=== PATIENT | male | born 1945 | race Caucasian/White ===

== ENCOUNTER 2016-08-20 19:55 | Emergency (ER) | payer MEDICARE ==
[2016-08-20] MEDS ORDERED: ASPIRIN 81 MG TABLET, CHEWABLE PO ONE (20:50)
[2016-08-20 21:07] LABS: ANION GAP 14 (5-19); BLOOD UREA NITROGEN 18 mg/dL (7-20); CALCIUM 10.2 mg/dL (8.4-10.2); CARBON DIOXIDE 22 mmol/L (22-30); CHLORIDE 104 mmol/L (98-107); CREATINE KINASE 114 U/L (55-170); CREATININE RESULT 0.74 mg/dL (0.52-1.25); GLUCOSE 124 mg/dL (75-110); POTASSIUM 4.4 mmol/L (3.6-5.0); SODIUM 140.1 mmol/L (137-145)
[2016-08-20 21:26] LABS: CREATINE KINASE MB 1.43 ng/mL (<4.55)
[2016-08-20 21:27] LABS: TROPONIN I < 0.012 ng/mL
[2016-08-20] MEDS ORDERED: NITROGLYCERIN 0.4 MG/TAB 25 TAB/BOTTLE SL PRN (21:36)
--- NOTE | 2016-08-20 21:40 | ER Document Report ---
ED General - General Chief Complaint: Chest Pain Stated Complaint: CHEST PAIN Notes: Patient is a 71-year-old male with past medical history of hypertension, hyperlipidemia, active smoker, prior history of coronary artery disease status post heart catheterization with stenting several years ago who presents with acute onset of left-sided chest pain. Described as a crushing, severe pain that radiates into his jaw and left arm. States this does not feel same as when he had a prior SC but notes he was very concerned when the symptoms did not resolve. He did try aspirin at home without improvement of symptoms. Nothing worsens the symptoms. He did not see his primary care physician regarding today's concerns. Does note some associated mild shortness of breath as well as diaphoresis but no vomiting. TRAVEL OUTSIDE OF THE [place] IN LAST 30 DAYS: No - Related Data Allergies/Adverse Reactions: No Known Allergies Allergy (Verified 11/04/12 12:47) Past Medical History - General Information source: Patient - Social History Smoking Status: Current Every Day Smoker Frequency of alcohol use: None Drug Abuse: None Lives with: Spouse/Significant other Family History: Reviewed & Not Pertinent - Past Medical History Cardiac Medical History: Reports: Hx Heart Attack - 2005 Denies: Hx Hypertension Pulmonary Medical History: Denies: Hx Asthma Neurological Medical History: Denies: Hx Cerebrovascular Accident, Hx Seizures GI Medical History: Denies: Hx Hepatitis, Hx Hiatal Hernia, Hx Ulcer Infectious Medical History: Denies: Hx Hepatitis Past Surgical History: Reports: Hx Cardiac Surgery. Denies: Hx Open Heart Surgery, Hx Pacemaker - Immunizations Hx Diphtheria, Pertussis, Tetanus Vaccination: No - unknown Review of Systems - Review of Systems Notes: Constitutional: Negative for fever. HENT: Negative for sore throat. Eyes: Negative for visual changes. Cardiovascular: Positive for chest pain. Respiratory: Negative for shortness of breath. Gastrointestinal: Negative for abdominal pain, vomiting or diarrhea. Genitourinary: Negative for dysuria. Musculoskeletal: Negative for back pain. Skin: Negative for rash. Neurological: Negative for headaches, weakness or numbness. 10 point ROS negative except as marked above and in HPI. Physical Exam - Vital signs Vitals: Pulse Ox 95 08/20/16 20:36 Interpretation: Normal Notes: PHYSICAL EXAMINATION: GENERAL: Well-appearing, well-nourished and in no acute distress. HEAD: Atraumatic, normocephalic. EYES: Pupils equal round and reactive to light, extraocular movements intact, sclera anicteric, conjunctiva are normal. ENT: nares patent, oropharynx clear without exudates. Moist mucous membranes. NECK: Normal range of motion, supple without lymphadenopathy LUNGS: Breath sounds clear to auscultation bilaterally and equal. No wheezes rales or rhonchi. HEART: Regular rate and rhythm without murmurs ABDOMEN: Soft, nontender, normoactive bowel sounds. No guarding, no rebound. No masses appreciated. EXTREMITIES: Normal range of motion, no pitting or edema. No cyanosis. NEUROLOGICAL: No focal neurological deficits. Moves all extremities spontaneously and on command. PSYCH: Normal mood, normal affect. SKIN: Warm, Dry, normal turgor, no rashes or lesions noted. Course - Re-evaluation Re-evalutation: 08/20/16 21:38 Patient presents with chest pain concerning for possible ACS versus dissection. Initial EKG without ST changes. Initial troponin was also negative and patient has been having chest pain for over 12 hours at this time. I did take blood pressures of both arms at the bedside and there was a 20 mmHg difference between the left and the right. Based on this exam findings and patient's ongoing chest pain without obvious ischemic etiology, CT of the chest will be obtained to evaluate for an acute dissection patient was also initially tachycardic so the CTA will likewise help for acute pulmonary embolus. 08/21/16 03:15 CTA is read as negative. Patient continues to have intermittent chest pain. A repeat troponin was obtained and did come back mildly elevated at 0.167 above our AMI cut off. Patient's chest pain has been responsive to morphine. A repeat troponin is without any ST changes. I have discussed this case with , the hospitalist at [facility] who has accepted for transfer at this time. Patient has been updated on the care plan. Lovenox will be administered. - Vital Signs Vital signs: Temp Pulse Resp BP Pulse Ox 17 150/107 H 92 08/21/16 02:01 08/21/16 02:01 08/21/16 02:01 - Laboratory Result Diagrams: 08/20/16 20:30 08/20/16 20:30 Laboratory results interpreted by me: 08/20/16 08/20/16 20:30 20:30 WBC 13.0 H RDW 14.1 H Absolute Neutrophils 8.4 H Glucose 124 H - Diagnostic Test Radiology reviewed: Image reviewed, Reports reviewed Radiology results interpreted by me: 08/21/16 03:16 Chest x-ray: No pneumothorax or acute infiltrate - EKG Interpretation by Me Additional EKG results interpreted by me: 08/21/16 03:17 EKG 1: Sinus rhythm. Rate 88. No ST elevations or depressions. QTC 441 08/21/16 03:17 EKG 2: Normal sinus rhythm. Rate 85. No ST elevations or depressions Discharge - Discharge Clinical Impression: NSTEMI (non-ST elevated myocardial infarction) Condition: Fair Disposition: [facility]
[2016-08-20 21:53] LABS: ABSOLUTE BASOPHILS # (AUTO) 0.1 10^3/uL (0.0-0.2); ABSOLUTE EOSINOPHILS # (AUTO) 0.3 10^3/uL (0.0-0.6); ABSOLUTE LYMPHOCYTES (AUTO) 2.9 10^3/uL (0.5-4.7); ABSOLUTE MONOCYTES (AUTO) 1.3 10^3/uL (0.1-1.4); ABSOLUTE NEUT (AUTO) 8.4 10^3/uL (1.7-8.2); BASOPHILS % (AUTO) 0.7 % (0-2); EOSINOPHILS % (AUTO) 2.2 % (0-6); HEMATOCRIT 47.5 % (37.9-51.0); HGB HCT DIFFERENCE 0.5; LYMPHOCYTES % (AUTO) 22.2 % (13-45); MEAN CORPUSCULAR HEMOGLOBIN 29.2 pg (27.0-33.4); MEAN CORPUSCULAR HGB CONC 33.7 g/dL (32.0-36.0); MEAN CORPUSCULAR VOLUME 87 fl (80-97); MONOCYTES % (AUTO) 10.2 % (3-13); RED BLOOD COUNT 5.49 10^6/uL (4.35-5.55); RED CELL DISTRIBUTION WIDTH 14.1 % (11.5-14.0); SEGMENTED NEUTROPHILS % (AUTO) 64.7 % (42-78)
[2016-08-20] MEDS: MORPHINE SULFATE 10 MG/ML INJ IV PRN (21:57)
[2016-08-21] MEDS: MORPHINE SULFATE 10 MG/ML INJ IV PRN (00:24)
[2016-08-21] MEDS ORDERED: ENOXAPARIN SODIUM INJ 100 MG/1 ML DISP.SYRIN SUBCUT SCH (03:30)
--- NOTE | 2016-08-21 08:08 | EKG REPORT ---
SEVERITY:- NORMAL ECG - SINUS RHYTHM : Confirmed by: Loyd Villegas MD 21-Aug-2016 08:07:54
--- NOTE | 2016-08-21 08:08 | ER Document Report ---
Doctor's Note Notes: 08/21/16 08:07 Patient is complaining of increasing pain to his left anterior chest going into the shoulder, neck, and shooting down the arm. He states it might be made worse with movement deep breath and cough, but on examining him this does not appear to be case. Does have a congested cough. He does have morphine ordered for when necessary pain management so I will request the nurse administer that. She was also going to repeat his EKG at this time. He has a bed and an accepting physician at [facility], but transportation is still not available I am told. 08/21/16 09:27 A repeat EKG done remains normal. I was just informed that the when necessary morphine and so requested about an hour ago was refused by the patient. His vital signs remain stable. Transport is here to pick him up this time.
--- NOTE | 2016-08-21 08:09 | EKG REPORT ---
SEVERITY:- ABNORMAL ECG - SINUS RHYTHM PROBABLE ANTEROSEPTAL INFARCT, AGE INDETERM LATERAL LEADS ARE ALSO INVOLVED : Confirmed by: Loyd Villegas MD 21-Aug-2016 08:08:04
[2016-08-21 09:07] VITALS: BP 130/89
--- NOTE | 2016-08-21 13:50 | EKG REPORT ---
SEVERITY:- NORMAL ECG - SINUS RHYTHM : Confirmed by: Loyd Villegas MD 21-Aug-2016 13:50:03
== END 2016-08-21 09:27 | disposition short-term general hospital (02) ==
LOC: ER 19:55
DX: I21.4 Non-ST elevation (NSTEMI) myocardial infarction (principal); R07.9 Chest pain, unspecified; F17.200 Nicotine dependence, unspecified, uncomplicated; I10 Essential (primary) hypertension; E78.00 Pure hypercholesterolemia, unspecified
CPT/HCPCS: 93005 ×2; 99285; 96372; 96374; 36415; 82553; 82550; 85025; 80048; 84484; 71010; 71275; 93010 ×2; J2270 ×2; J1650

== ENCOUNTER 2018-05-30 10:59 | Emergency (ER) | payer MEDICARE ==
[2018-05-30] MEDS ORDERED: IPRATROPIUM/ALBUTEROL 0.5-2.5 MG/3 ML AMPUL NEB ONE (11:15)
[2018-05-30] MEDS ORDERED: PREDNISONE 20 MG TABLET PO ONE (11:15)
--- NOTE | 2018-05-30 11:17 | ER Document Report ---
ED Medical Screen (RME) - General Chief Complaint: Shortness Of Breath Stated Complaint: SHORTNESS OF BREATH Time Seen by Provider: 05/30/18 11:14 Notes: 73-year-old male to emergency department chief complaint of shortness of breath and wheezing. Patient states that he feels like he has fullness in his chest. Denies any chest pain. Is a smoker but states that he has not smoked in a couple of weeks due to the worsening shortness of breath. Dreaming about smoking a cigarette but not smoking at this time. History of COPD. History of stents. I have greeted and performed a rapid initial assessment of this patient. A comprehensive ED assessment and evaluation of the patient, analysis of test results and completion of the medical decision making process will be conducted by additional ED providers. TRAVEL OUTSIDE OF THE [place] IN LAST 30 DAYS: No - Related Data Allergies/Adverse Reactions: No Known Allergies Allergy (Verified 05/30/18 11:16) Past Medical History - Social History Chew tobacco use (# tins/day): No Frequency of alcohol use: None Drug Abuse: None - Past Medical History Cardiac Medical History: Reports: Hx Heart Attack - 2006, Hx Hypercholesterolemia Denies: Hx Hypertension Pulmonary Medical History: Reports: Hx Asthma, Hx COPD Neurological Medical History: Denies: Hx Cerebrovascular Accident, Hx Seizures Renal/ Medical History: Denies: Hx Peritoneal Dialysis GI Medical History: Denies: Hx Hepatitis, Hx Hiatal Hernia, Hx Ulcer Infectious Medical History: Denies: Hx Hepatitis Past Surgical History: Reports: Hx Cardiac Surgery, Hx Cholecystectomy, Hx Orthopedic Surgery - right leg metal plate. Denies: Hx Open Heart Surgery, Hx Pacemaker - Immunizations Hx Diphtheria, Pertussis, Tetanus Vaccination: No - unknown Review of Systems - Review of Systems Notes: Review of systems positive for the following: Shortness of breath, wheeze Physical Exam - Vital signs Vitals: Temp Pulse Resp BP Pulse Ox 97.8 F 82 28 H 144/77 H 91 L 05/30/18 11:05 05/30/18 11:05 05/30/18 11:05 05/30/18 11:05 05/30/18 11:05 Notes: Oxygen saturations 91% on room air. - Respiratory Respiratory status: No respiratory distress, Tachypnea Chest status: Nontender Breath sounds: Nonproductive cough, Wheezing Chest palpation: Normal - Cardiovascular Rhythm: Regular Heart sounds: Normal auscultation Course - Vital Signs Vital signs: Temp Pulse Resp BP Pulse Ox 97.8 F 82 28 H 144/77 H 91 L 05/30/18 11:05 05/30/18 11:05 05/30/18 11:05 05/30/18 11:05 05/30/18 11:05
[2018-05-30 11:50] LABS: ABSOLUTE BASOPHILS # (AUTO) 0.1 10^3/uL (0.0-0.2); ABSOLUTE EOSINOPHILS # (AUTO) 0.5 10^3/uL (0.0-0.6); ABSOLUTE LYMPHOCYTES (AUTO) 2.1 10^3/uL (0.5-4.7); ABSOLUTE MONOCYTES (AUTO) 0.8 10^3/uL (0.1-1.4); ABSOLUTE NEUT (AUTO) 7.4 10^3/uL (1.7-8.2); EOSINOPHILS % (AUTO) 4.2 % (0-6); HEMATOCRIT 47.4 % (37.9-51.0); LYMPHOCYTES % (AUTO) 19.4 % (13-45); MEAN CORPUSCULAR HEMOGLOBIN 29.4 pg (27.0-33.4); MEAN CORPUSCULAR HGB CONC 33.7 g/dL (32.0-36.0); MEAN CORPUSCULAR VOLUME 88 fl (80-97); MONOCYTES % (AUTO) 7.3 % (3-13); PLATELET COUNT 336 10^3/uL (150-450); RED BLOOD COUNT 5.42 10^6/uL (4.35-5.55); RED CELL DISTRIBUTION WIDTH 15.1 % (11.5-14.0); SEGMENTED NEUTROPHILS % (AUTO) 68.1 % (42-78); TOTAL CELLS COUNTED % (AUTO) 100 %; WHITE BLOOD COUNT 10.9 10^3/uL (4.0-10.5)
[2018-05-30 12:03] LABS: ALANINE AMINOTRANSFERASE 30 U/L (21-72); ALBUMIN 4.3 g/dL (3.5-5.0); ALKALINE PHOSPHATASE 102 U/L (38-126); ANION GAP 13 (5-19); ASPARTATE AMINO TRANSFERASE 25 U/L (17-59); BILIRUBIN,DIRECT 0.2 mg/dL (0.0-0.4); BILIRUBIN,TOTAL 0.6 mg/dL (0.2-1.3); BLOOD UREA NITROGEN 23 mg/dL (7-20); CALCIUM 9.5 mg/dL (8.4-10.2); CARBON DIOXIDE 26 mmol/L (22-30); CHLORIDE 104 mmol/L (98-107); CREATINE KINASE 158 U/L (55-170); GLUCOSE 109 mg/dL (75-110); POTASSIUM 5.1 mmol/L (3.6-5.0); SODIUM 142.6 mmol/L (137-145); TOTAL PROTEIN 7.5 g/dL (6.3-8.2)
[2018-05-30 12:14] LABS: CREATINE KINASE MB 2.84 ng/mL (<4.55); NT PRO BNP 23 pg/mL (5-900)
[2018-05-30 12:16] LABS: TROPONIN I < 0.012 ng/mL
[2018-05-30] MEDS ORDERED: ALBUTEROL SULFATE 0.083% NEB 2.5 MG/3 ML AMPUL NEB ONE (12:28)
[2018-05-30] MEDS ORDERED: MAGNESIUM SULFATE/D5W 1 GM/100 ML RTUPB IV ONE (12:28)
--- NOTE | 2018-05-30 12:29 | RADIOLOGY REPORT (SQ) ---
EXAM DESCRIPTION: CHEST 2 VIEWS COMPLETED DATE/TIME: 05/30/2018 12:07 pm REASON FOR STUDY: sob COMPARISON: 08/20/2016 EXAM PARAMETERS: NUMBER OF VIEWS: two views TECHNIQUE: Digital Frontal and Lateral radiographic views of the chest acquired. RADIATION DOSE: NA LIMITATIONS: none FINDINGS: LUNGS AND PLEURA: No opacities, masses or pneumothorax. No pleural effusion. MEDIASTINUM AND HILAR STRUCTURES: No masses or contour abnormalities. HEART AND VASCULAR STRUCTURES: Heart normal size. No evidence for failure. BONES: No acute findings. HARDWARE: None in the chest. OTHER: No other significant finding. IMPRESSION: No acute abnormality of the lungs. No focal airspace opacity. TECHNICAL DOCUMENTATION: JOB ID: [id number] [employer]- All Rights Reserved Reading location - IP/workstation name: [email or web address]
[2018-05-30] MEDS ORDERED: ALBUTEROL SULFATE HFA (90 MCG/PUFF) 8 GM MDI (1 MDI/ER DISP) IH ONE (14:32)
--- NOTE | 2018-05-30 14:33 | ER Document Report ---
ED General - General Chief Complaint: Shortness Of Breath Stated Complaint: SHORTNESS OF BREATH Time Seen by Provider: 05/30/18 11:14 TRAVEL OUTSIDE OF THE [place] IN LAST 30 DAYS: No - HPI Patient complains to provider of: Shortness of breath Notes: Patient coming in for increased shortness of breath and chest heaviness ongoing for the last 3 weeks intermittently. Patient states worse earlier this morning. Therefore patient came to the ER for further evaluation denies any recent travel denies any recent antibiotics. Patient states he does have a significant history of smoking for approximately 60 years. Patient states exacerbated with smoking last weeks because he has been feeling unwell. Denies any sputum production. Patient smells of nicotine upon my evaluation. Patient otherwise looks to be no obvious distress and was given a breathing treatment in triage states he does feel much better. - Related Data Allergies/Adverse Reactions: No Known Allergies Allergy (Verified 05/30/18 11:16) Past Medical History - Social History Smoking Status: Current Every Day Smoker Chew tobacco use (# tins/day): No Frequency of alcohol use: None Drug Abuse: None Family History: Reviewed & Not Pertinent Patient has suicidal ideation: No Patient has homicidal ideation: No - Past Medical History Cardiac Medical History: Reports: Hx Heart Attack - 2006, Hx Hypercholesterolemia Denies: Hx Hypertension Pulmonary Medical History: Reports: Hx Asthma, Hx COPD Neurological Medical History: Denies: Hx Cerebrovascular Accident, Hx Seizures Renal/ Medical History: Denies: Hx Peritoneal Dialysis GI Medical History: Denies: Hx Hepatitis, Hx Hiatal Hernia, Hx Ulcer Infectious Medical History: Denies: Hx Hepatitis Past Surgical History: Reports: Hx Cardiac Surgery, Hx Cholecystectomy, Hx Orthopedic Surgery - right leg metal plate. Denies: Hx Open Heart Surgery, Hx Pacemaker - Immunizations Hx Diphtheria, Pertussis, Tetanus Vaccination: No - unknown Review of Systems - Review of Systems Constitutional: No symptoms reported EENT: No symptoms reported Cardiovascular: Chest pain - Chest heaviness Respiratory: Short of breath Gastrointestinal: No symptoms reported Genitourinary: No symptoms reported Male Genitourinary: No symptoms reported Musculoskeletal: No symptoms reported Skin: No symptoms reported Hematologic/Lymphatic: No symptoms reported Neurological/Psychological: No symptoms reported -: Yes All other systems reviewed and negative Physical Exam - Vital signs Vitals: Temp Pulse Resp BP Pulse Ox 97.8 F 82 28 H 144/77 H 91 L 05/30/18 11:05 05/30/18 11:05 05/30/18 11:05 05/30/18 11:05 05/30/18 11:05 Interpretation: Normal - General General appearance: Appears well, Alert - HEENT Head: Normocephalic, Atraumatic Eyes: Normal Pupils: PERRL - Respiratory Respiratory status: No respiratory distress Chest status: Nontender Breath sounds: Wheezing Chest palpation: Normal - Cardiovascular Rhythm: Regular Heart sounds: Normal auscultation Murmur: No - Abdominal Inspection: Normal Distension: No distension Bowel sounds: Normal Tenderness: Nontender Organomegaly: No organomegaly - Back Back: Normal, Nontender - Extremities General upper extremity: Normal inspection, Nontender, Normal color, Normal ROM , Normal temperature General lower extremity: Normal inspection, Nontender, Normal color, Normal ROM , Normal temperature, Normal weight bearing. No: Jose Luis's sign - Neurological Neuro grossly intact: Yes Cognition: Normal Orientation: AAOx4 [place] Coma Scale Eye Opening: Spontaneous [place] Coma Scale Verbal: Oriented [place] Coma Scale Motor: Obeys Commands Heike Coma Scale Total: 15 Speech: Normal Motor strength normal: LUE, RUE, LLE, RLE Sensory: Normal - Psychological Associated symptoms: Normal affect, Normal mood - Skin Skin Temperature: Warm Skin Moisture: Dry Skin Color: Normal Course - Re-evaluation Re-evalutation: 05/30/18 15:14 The patient has atypical chest pain as the patient's chest pain is not suggestive of pulmonary embolus, cardiac ischemia, aortic dissection, or other serious etiology. Given the extremely low risk of these diagnoses further testing and evaluation for these possibilities does not appear to be indicated at this time. The patient has been instructed to return if the symptoms worsen or change in any way. Evaluation is more consistent with COPD exacerbation. After breathing treatments and magnesium steroids patient was ambulated around the emergency department with no reproducible chest pain also no signs of hypoxia SPO2 staying at 90%. Recommend patient continue to use his albuterol at home 1-2 puffs every 2-4 hours continue with steroids follow-up PCP at this time do not see any need for antibiotics. Patient agrees discharge will follow up with PCP - Vital Signs Vital signs: Temp Pulse Resp BP Pulse Ox 97.8 F 82 15 148/77 H 92 05/30/18 11:05 05/30/18 11:05 05/30/18 14:01 05/30/18 14:24 05/30/18 14:24 - Laboratory Result Diagrams: 05/30/18 11:39 05/30/18 11:39 Laboratory results interpreted by me: 05/30/18 05/30/18 11:39 11:39 WBC 10.9 H RDW 15.1 H Potassium 5.1 H BUN 23 H Discharge - Discharge Clinical Impression: Chest fullness, COPD exacerbation Condition: Good Disposition: HOME, SELF-CARE Instructions: Chronic Obstructive Lung Disease ([facility]), Chest Pain of Unclear Cause ([facility]), Stop Smoking ([facility]) Additional Instructions: Your evaluation today does not show any signs of cardiac ischemia abnormal EKG. Your chest x-ray does not show any signs of pneumonia or any other infection. Symptoms are more consistent with a COPD exacerbation. We recommend continue to use your inhalers at home please use your albuterol inhaler 2 puffs every 2- 4 hours as needed for shortness of breath take steroids as prescribed. Return to the ER if you develop any fevers or chills worsening symptoms follow-up with your primary care physician in the next 3-5 days. Prescriptions: Albuterol Sulfate [Proair HFA Inhalation Aerosol 8.5 gm MDI] 2 puff IH Q4H PRN # 1 mdi PRN Reason: Prednisone [Deltasone] 60 mg PO DAILY #24 tablet Forms: Smoking Cessation Education
[2018-05-30 15:20] VITALS: BP 123/72
--- NOTE | 2018-05-31 10:51 | EKG REPORT ---
SEVERITY:- NORMAL ECG - SINUS RHYTHM : Confirmed by: Amanda Livingston 31-May-2018 10:49:24
== END 2018-05-30 15:16 | disposition home or self-care (01) ==
LOC: ER 10:59
DX: J44.1 Chronic obstructive pulmonary disease with (acute) exacerbation (principal); R07.9 Chest pain, unspecified; F17.200 Nicotine dependence, unspecified, uncomplicated; Z90.49 Acquired absence of other specified parts of digestive tract
CPT/HCPCS: 93005; 94640 ×2; 99285; 96365; 36415; 82553; 82550; 85025; 80053; 84484; 83880; 71046; 93010; J3475; A9270 ×3; J3490; J7512; J7620

== ENCOUNTER 2018-11-30 14:23 | Emergency (ER) | payer MEDICARE, OTHER ==
--- NOTE | 2018-11-30 15:21 | ER Document Report ---
HPI - HPI Patient complains to provider of: abscess Time Seen by Provider: 11/30/18 14:55 Onset: Other Onset/Duration: Persistent Severity: Moderate Pain Level: 3 Context: Patient has presented to the emergency department with a report of abscess to the back. He reports he noticed a bump on his back a few weeks ago. He applied a black salve to it. Today he noticed it was draining green drainage. He denies other symptoms such as fever vomiting diarrhea. Denies history of MRSA. Bandage removed approximate 1.5 cm opening noted with white-yellowish drainage. Culture obtained. Past Medical History - General Information source: Patient - Social History Smoking Status: Former Smoker Cigarette use (# per day): No Frequency of alcohol use: None Drug Abuse: None Lives with: Alone Family History: Reviewed & Not Pertinent Patient has suicidal ideation: No Patient has homicidal ideation: No - Past Medical History Cardiac Medical History: Reports: Hx Heart Attack - 2005, Hx Hypercholesterolemia Denies: Hx Hypertension Pulmonary Medical History: Reports: Hx Asthma, Hx COPD Neurological Medical History: Denies: Hx Cerebrovascular Accident, Hx Seizures Renal/ Medical History: Denies: Hx Peritoneal Dialysis GI Medical History: Denies: Hx Hepatitis, Hx Hiatal Hernia, Hx Ulcer Infectious Medical History: Denies: Hx Hepatitis Past Surgical History: Reports: Hx Cardiac Surgery, Hx Cholecystectomy, Hx Orthopedic Surgery - right leg metal plate. Denies: Hx Open Heart Surgery, Hx Pacemaker - Immunizations Hx Diphtheria, Pertussis, Tetanus Vaccination: No - unknown Vertical Provider Document - CONSTITUTIONAL Agree With Documented VS: Yes Exam Limitations: No Limitations General Appearance: WD/WN, No Apparent Distress - INFECTION CONTROL TRAVEL OUTSIDE OF THE [place] IN LAST 30 DAYS: No - HEENT HEENT: Atraumatic, Normocephalic - NECK Neck: Supple - RESPIRATORY Respiratory: No Respiratory Distress - CARDIOVASCULAR Cardiovascular: Regular Rate - MUSCULOSKELETAL/EXTREMETIES Musculoskeletal/Extremeties: UMER TOWNSEND - NEURO Level of Consciousness: Awake, Alert, Appropriate Motor/Sensory: No Motor Deficit - DERM Integumentary: Warm, Dry, Abscess Adult Front & Back Diagram: 1 - Draining abscess noted to the left side mid back. No fluctuance no induration culture obtained Course - Re-evaluation Re-evalutation: 11/30/18 15:18 Back cleaned with normal saline and Shur-Clens dressing applied. Patient was instructed to not applied the black salve. Was instructed on cleaning it. Patient was instructed on Bactrim. He was instructed on the signs and symptoms of allergic reaction he verbalized understanding to these instructions. He reports he goes to the clinic in [place] and can do a follow-up this week. O2 sat 92%. Patient reports he should be on oxygen but he does not want to go on it because he lives alone and he is worried that if they put him on oxygen he will be able to fend for himself though he does now. Patient is in no distress. Respiratory rate even unlabored. He was instructed on the importance of follow-up to get a full checkup for himself. He verbalized understanding. Dictation of this chart was performed using voice recognition software; therefore, there may be some unintended grammatical errors. - Vital Signs Vital signs: 11/30/18 15:20 [id number] 18/ 124/59 Discharge - Discharge Clinical Impression: Abscess Condition: Stable Disposition: HOME, SELF-CARE Instructions: Abscess ([facility]), Trimethoprim-Sulfa ([facility]) Additional Instructions: *You have been treated for an abscess *Take medication as prescribed *Monitor the site for signs of increasing infection such as increasing pain, redness, swelling, warmth *Wash the site twice daily as discussed *Follow up with your primary care provider this week *Do not apply the black salve *Return to ED for signs of increasing infection, worsening condition, changes, needs Prescriptions: Sulfamethoxazole/Trimethoprim [Bactrim Ds Tablet] 1 each PO BID #20 tablet
[2018-11-30 15:28] VITALS: BP 124/59
== END 2018-11-30 15:31 | disposition home or self-care (01) ==
LOC: ER 14:23
DX: L02.212 Cutaneous abscess of back [any part, except buttock and flank] (principal); E78.00 Pure hypercholesterolemia, unspecified; J44.9 Chronic obstructive pulmonary disease, unspecified; I25.2 Old myocardial infarction
CPT/HCPCS: 87070; 87075; 87077; 87186; 87205; 99282

== ENCOUNTER 2018-12-11 04:48 | Emergency (ER) | payer MEDICARE, OTHER ==
[2018-12-11] MEDS ORDERED: METHYLPREDNISOLONE INJ 125 MG/2 ML SDV IV ONE (07:10)
[2018-12-11] MEDS ORDERED: IPRATROPIUM/ALBUTEROL 0.5-2.5 MG/3 ML AMPUL NEB ONE ×2 (07:10→07:27)
--- NOTE | 2018-12-11 07:25 | ER Document Report ---
Entered by EUGENIO SOLIZ SCRIBE 12/11/18 0719 Acting as scribe for:SATHISH SHARMA MD ED General - General Chief Complaint: Shortness Of Breath Stated Complaint: SHORTNESS OF BREATH Time Seen by Provider: 12/11/18 07:02 Mode of Arrival: Ambulatory Information source: Patient Notes: Patient is a 73 year old male with HTN, CAD, HLD, 2 stents and a history of MA (2006, NSTEMI 2016) presents to the emergency department complaining of worsening shortness of breath. Patient states he developed shortness of breath 1 week ago that has markedly worsened yesterday. He states he called his PCP and was instructed to go to the emergency department. Patient states he has been using his inhaler every hour with light activity and every 4 hours when relaxing. He denies any other focal symptoms. Of note, patient presented to the emergency department 11 days ago due to an abscess on his back and was discharged home with a prescription of a 10 day course of Septra DS. Patient finished his last dose yesterday. TRAVEL OUTSIDE OF THE [place] IN LAST 30 DAYS: No - Related Data Allergies/Adverse Reactions: No Known Allergies Allergy (Verified 05/30/18 11:16) Past Medical History - General Information source: Patient - Social History Smoking Status: Former Smoker - Smoked for 60 years, quit a few months ago in 2019 Cigarette use (# per day): No Chew tobacco use (# tins/day): No Smoking Education Provided: No Frequency of alcohol use: None Family History: Reviewed & Not Pertinent - Past Medical History Cardiac Medical History: Reports: Hx Heart Attack - 2005, 2016, Hx Hypercholesterolemia Pulmonary Medical History: Reports: Hx Asthma, Hx COPD Past Surgical History: Reports: Hx Cardiac Surgery - cath and 2 stents, Hx Cholecystectomy, Hx Orthopedic Surgery - right leg metal plate - Immunizations Hx Diphtheria, Pertussis, Tetanus Vaccination: No - unknown Review of Systems - Review of Systems Constitutional: No symptoms reported EENT: No symptoms reported Cardiovascular: No symptoms reported Respiratory: See HPI, Short of breath Gastrointestinal: No symptoms reported Genitourinary: No symptoms reported Male Genitourinary: No symptoms reported Musculoskeletal: No symptoms reported Skin: No symptoms reported Hematologic/Lymphatic: No symptoms reported Neurological/Psychological: No symptoms reported -: Yes All other systems reviewed and negative Physical Exam - Vital signs Vitals: Temp Pulse Resp BP Pulse Ox 98.1 F 102 H 28 H 154/89 H 92 12/11/18 04:55 12/11/18 04:55 12/11/18 04:55 12/11/18 04:55 12/11/18 04:55 - Notes Notes: GENERAL: Alert, interacts well. No acute distress. HEAD: Normocephalic, atraumatic. EYES: Pupils equal, round, and reactive to light. Extraocular movements intact. ENT: Oral mucosa moist, tongue midline. NECK: Full range of motion. Supple. Trachea midline. LUNGS: Audible expiratory wheezes. Mildly dyspneic. 95% oxygen saturation on room air, good wave form on equipment monitor phototypesetting per my interpretation. No re spiratory distress. HEART: Regular rate and rhythm. No murmurs, gallops, or rubs. ABDOMEN: Soft, non-tender. Non-distended. Bowel sounds present in all 4 quadrants. No guarding, rigidity, or rebound. EXTREMITIES: Moves all 4 extremities spontaneously. No edema, radial and dorsalis pedis pulses 2/4 bilaterally. No cyanosis. NEUROLOGICAL: Alert and oriented x3. Normal speech. PSYCH: Normal affect, normal mood. SKIN: Warm, dry, normal turgor. No rashes or lesions noted. Course - Re-evaluation Re-evalutation: 12/11/18 10:16 Patient did seem to be resting comfortably. He was asleep and snoring. His pulse ox was 94 to 95% and his heart rate was in the upper 70s. I woke the patient up and had him sit up to breathe and he still has the prolonged expiratory phase with wheeze, but overall his lungs do sound better. I discussed with the patient reasons why he should be using CPAP when he is sleeping. He states he has sleep studies, they talked to him about using the CPAP, but he states he cannot sleep with it on. At this time I do not see a reason that he needs to be hospitalized, however he should follow-up with a pulmonary medicine doctor to evaluate his current medication regimen and see if anything can be done to improve his overall respiratory function. - Vital Signs Vital signs: Temp Pulse Resp BP Pulse Ox 98.2 F 102 H 15 142/86 H 93 12/11/18 07:11 12/11/18 04:55 12/11/18 07:11 12/11/18 07:11 12/11/18 07:11 - Laboratory Result Diagrams: 12/11/18 07:42 12/11/18 07:42 Laboratory results interpreted by me: 12/11/18 12/11/18 07:42 07:42 RDW 14.3 H Eosinophils % 6.5 H Absolute Eosinophils 0.7 H Glucose 124 H - Diagnostic Test Radiology reviewed: Image reviewed, Reports reviewed - Chest x-ray shows COPD without acute changes. - EKG Interpretation by Me EKG shows normal: Sinus rhythm, [place], Intervals, QRS Complexes, ST-T Waves Rate: Normal - 73 Rhythm: NSR When compared to previous EKG there are: No significant change Discharge - Discharge Clinical Impression: Exertional shortness of breath Chronic obstructive pulmonary disease (COPD) Qualifiers: COPD type: unspecified COPD Qualified Code(s): J44.9 - Chronic obstructive pulmonary disease, unspecified Condition: Stable Disposition: HOME, SELF-CARE Additional Instructions: Chronic Obstructive Lung Disease You have chronic obstructive lung disease (COPD). The symptoms come from emphysema (damage to small airways, with trapping of air in large sacks in the lung) and chronic bronchitis (repeated infection and damage to larger airways). The cause is almost always cigarette smoking, although dust exposure, asthma, and infections contribute. You should avoid fumes, dust, and smoke (especially tobacco smoke). Your condition will flare from time to time. There is no cure, but the symptoms can be treated. Bronchodilators (asthma medicine) are often helpful. Antibiotics help when infection is present. When shortness of breath is severe, we may prescribe cortisone medication. If medicine doesn't help enough, we can arrange for you to have an oxygen tank at home. Notify your doctor at once if sputum becomes thick, foul, or bloody, if you develop a fever or chest pain, or if your shortness of breath worsens. Start taking the prednisone as prescribed tomorrow. Continue your Spiriva as prescribed. Use your albuterol as often as necessary. Rest and limit your activity over the next few days. Follow-up with your primary care provider at the [facility] on Friday to discuss a referral to a hvac estimator and to discuss using CPAP at night when you are sleeping. RETURN TO THE EMERGENCY ROOM IF ANY NEW OR WORSENING SYMPTOMS. Prescriptions: Albuterol Sulfate [Proventil Hfa] 6.7 gm IH Q4 PRN #1 [id number].[id number] PRN Reason: Shortness Of Breath Prednisone [Deltasone 10 mg Tablet] 10 mg PO ASDIR PRN #21 tablet PRN Reason: Scribe Attestation: 12/11/18 08:23 I personally performed the services described in the documentation, reviewed and edited the documentation which was dictated to the scribe in my presence, and it accurately records my words and actions. I personally performed the services described in the documentation, reviewed and edited the documentation which was dictated to the scribe in my presence, and it accurately records my words and actions.
[2018-12-11] MEDS ORDERED: METHYLPREDNISOLONE INJ 125 MG/2 ML SDV ONE (07:28)
[2018-12-11 07:58] LABS: ABSOLUTE BASOPHILS # (AUTO) 0.1 10^3/uL (0.0-0.2); ABSOLUTE EOSINOPHILS # (AUTO) 0.7 10^3/uL (0.0-0.6); ABSOLUTE LYMPHOCYTES (AUTO) 2.5 10^3/uL (0.5-4.7); ABSOLUTE MONOCYTES (AUTO) 0.7 10^3/uL (0.1-1.4); ABSOLUTE NEUT (AUTO) 6.6 10^3/uL (1.7-8.2); BASOPHILS % (AUTO) 1.1 % (0-2); EOSINOPHILS % (AUTO) 6.5 % (0-6); HEMATOCRIT 47.2 % (37.9-51.0); HEMOGLOBIN 15.8 g/dL (13.5-17.0); LYMPHOCYTES % (AUTO) 23.4 % (13-45); MEAN CORPUSCULAR HEMOGLOBIN 29.2 pg (27.0-33.4); MEAN CORPUSCULAR HGB CONC 33.5 g/dL (32.0-36.0); MEAN CORPUSCULAR VOLUME 87 fl (80-97); MONOCYTES % (AUTO) 6.5 % (3-13); PLATELET COUNT 282 10^3/uL (150-450); RED BLOOD COUNT 5.43 10^6/uL (4.35-5.55); RED CELL DISTRIBUTION WIDTH 14.3 % (11.5-14.0); SEGMENTED NEUTROPHILS % (AUTO) 62.5 % (42-78); TOTAL CELLS COUNTED % (AUTO) 100 %; WHITE BLOOD COUNT 10.5 10^3/uL (4.0-10.5)
[2018-12-11] MEDS ORDERED: ALBUTEROL SULFATE 0.083% NEB 2.5 MG/3 ML AMPUL NEB ONE (08:06)
[2018-12-11 08:11] LABS: ALANINE AMINOTRANSFERASE 26 U/L (21-72); ALBUMIN 4.5 g/dL (3.5-5.0); ALKALINE PHOSPHATASE 109 U/L (38-126); ANION GAP 16 (5-19); ASPARTATE AMINO TRANSFERASE 23 U/L (17-59); BILIRUBIN,DIRECT 0.2 mg/dL (0.0-0.4); BILIRUBIN,TOTAL 0.6 mg/dL (0.2-1.3); BLOOD UREA NITROGEN 17 mg/dL (7-20); CALCIUM 10.2 mg/dL (8.4-10.2); CARBON DIOXIDE 22 mmol/L (22-30); CHLORIDE 101 mmol/L (98-107); CREATINE KINASE 170 U/L (55-170); GLUCOSE 124 mg/dL (75-110); POTASSIUM 4.4 mmol/L (3.6-5.0); SODIUM 139.2 mmol/L (137-145); TOTAL PROTEIN 7.6 g/dL (6.3-8.2)
[2018-12-11 08:23] LABS: CREATINE KINASE MB 3.75 ng/mL (<4.55); TROPONIN I < 0.012 ng/mL
--- NOTE | 2018-12-11 08:40 | RADIOLOGY REPORT (SQ) ---
EXAM DESCRIPTION: CHEST SINGLE VIEW COMPLETED DATE/TIME: 12/11/2018 7:33 am REASON FOR STUDY: SOB, COPD COMPARISON: 05/30/2018 NUMBER OF VIEWS: One view. TECHNIQUE: Single frontal radiographic view of the chest acquired. LIMITATIONS: None. FINDINGS: LUNGS AND PLEURA: No opacities, masses or pneumothorax. No pleural effusion. Attenuated bl ood vessels and flattened fredy-diaphragms. MEDIASTINUM AND HILAR STRUCTURES: No masses. Contour normal. HEART AND VASCULAR STRUCTURES: Heart normal in size. Normal vasculature. BONES: No acute findings. HARDWARE: None in the chest. OTHER: No other significant finding. IMPRESSION: COPD. NO ACUTE RADIOGRAPHIC FINDING IN THE CHEST. TECHNICAL DOCUMENTATION: JOB ID: [id number] [employer]- All Rights Reserved Reading location - IP/workstation name: [email or web address]
[2018-12-11 09:14] LABS: APPEARANCE,URINE CLEAR; BILIRUBIN,URINE NEGATIVE (NEGATIVE); COLOR,URINE YELLOW; GLUCOSE, URINE NEGATIVE (NEGATIVE); KETONES,URINE NEGATIVE (NEGATIVE); LEUKOCYTE ESTERASE,URINE NEGATIVE (NEGATIVE); NITRITE,URINE NEGATIVE (NEGATIVE); PROTEIN,URINE NEGATIVE (NEGATIVE); URINE SPECIFIC GRAVITY 1.015; UROBILINOGEN,URINE NEGATIVE mg/dL (<2.0)
[2018-12-11] MEDS ORDERED: PREDNISONE 20 MG TABLET PO ONE (10:21)
[2018-12-11 10:44] VITALS: BP 117/48
--- NOTE | 2018-12-11 19:30 | EKG REPORT ---
SEVERITY:- NORMAL ECG - SINUS RHYTHM : Confirmed by: Debbie Gonsales MD 11-Dec-2018 19:28:56
== END 2018-12-11 10:45 | disposition home or self-care (01) ==
LOC: ER 04:48
DX: J44.9 Chronic obstructive pulmonary disease, unspecified (principal); R06.02 Shortness of breath; R06.83 Snoring; I10 Essential (primary) hypertension; I25.10 Atherosclerotic heart disease of native coronary artery without angina pectoris; I25.2 Old myocardial infarction; Z95.5 Presence of coronary angioplasty implant and graft; Z87.891 Personal history of nicotine dependence
CPT/HCPCS: 93005; 94640 ×2; 99285; 96374; 36415; 82553; 82550; 85025; 80053; 81001; 84484; 71045; 93010; J2930; A9270 ×3; J7512; J7620

== ENCOUNTER → 2019-04-01 | Outpatient (CLI) | payer MEDICARE, OTHER ==
--- NOTE | 2019-04-01 09:56 | RADIOLOGY REPORT (SQ) ---
EXAM DESCRIPTION: CT CHEST WITHOUT COMPLETED DATE/TIME: 04/01/2019 9:34 am REASON FOR STUDY: R06.00 DYSPNEA, UNSPECIFIED R06.00 DYSPNEA, UNSPECIFIED COMPARISON: 08/20/2016 TECHNIQUE: CT scan performed of the chest without intravenous contrast. Images reviewed with lung, soft tissue and bone windows. Reconstructed coronal and sagittal MPR images reviewed. All images st ored on PACS. All CT scanners at this facility use dose modulation, iterative reconstruction, and/or weight based d osing when appropriate to reduce radiation dose to as low as reasonably achievable (ALARA). [facility]: Dose Right [facility]: CareDose [facility]: Dose Right [facility]: Teradose 4D [facility]: Smart [employer] RADIATION DOSE: CT Rad equipment meets quality standard of care and radiation dose reduction techniq ues were employed. CTDIvol: 15.7 mGy. DLP: 675 mGy-cm. mGy. LIMITATIONS: No technical limitations. FINDINGS: LUNGS AND PLEURA: Moderate to severe upper lobe predominant paraseptal and panacinar emphy sema. No focal consolidation. No pleural effusion or pneumothorax. No discrete masses. HILAR AND MEDIASTINAL STRUCTURES: No identified masses or abnormal nodes. No obvious aneurysm. HEART AND VASCULAR STRUCTURES: No aneurysm. No significant pericardial effusion. Normal heart size. Scattered coronary atherosclerosis. UPPER ABDOMEN: Unchanged calcifications within the liver and spleen, likely from prior granulomatous disease. Prior cholecystectomy. No acute findings. THYROID AND OTHER SOFT TISSUES: Unremarkable thyroid. No masses. No adenopathy. Mild gynecomastia. BONES: No acute bony abnormality. No suspicious lytic or blastic osseous lesions. HARDWARE: None in the chest. OTHER: No other significant findings. IMPRESSION: 1. Emphysema without evidence of acute cardiopulmonary process. 2. Coronary atherosclerosis. TECHNICAL DOCUMENTATION: JOB ID: [id number] Quality ID # [id number]: Final reports with documentation of one or more dose reduction techniques (e.g., Au tomated exposure control, adjustment of the mA and/or kV according to patient size, use of iterative reconstruction technique) 2010 [email or web address]- All Rights Reserved Reading location - IP/workstation name: [email or web address]
== END ==
LOC: RAD 09:17
PROVIDERS: ATTEND Internal Medicine Pulmonary Disease
DX: R06.00 Dyspnea, unspecified (principal)
CPT/HCPCS: 71250

== ENCOUNTER 2019-07-22 13:57 | Inpatient (IN) | payer MEDICARE, OTHER ==
[2019-07-22] MEDS ORDERED: IPRATROPIUM/ALBUTEROL 0.5-2.5 MG/3 ML AMPUL NEB ONE (14:31)
[2019-07-22] MEDS ORDERED: METHYLPREDNISOLONE INJ 125 MG/2 ML SDV IV ONE (14:31)
[2019-07-22 14:34] LABS: VENOUS BLOOD BASE EXCESS -0.7 mmol/L; VENOUS BLOOD HCO3 28.1 mmol/L (20-32); VENOUS BLOOD PCO2 62.2 mmHg (35-63); VENOUS BLOOD PH 7.27 (7.30-7.42)
[2019-07-22 14:39] LABS: ABSOLUTE BASOPHILS # (AUTO) 0.2 10^3/uL (0.0-0.2); ABSOLUTE EOSINOPHILS # (AUTO) 0.4 10^3/uL (0.0-0.6); ABSOLUTE LYMPHOCYTES (AUTO) 2.2 10^3/uL (0.5-4.7); ABSOLUTE MONOCYTES (AUTO) 1.3 10^3/uL (0.1-1.4); ABSOLUTE NEUT (AUTO) 9.4 10^3/uL (1.7-8.2); BASOPHILS % (AUTO) 1.2 % (0-2); EOSINOPHILS % (AUTO) 3.3 % (0-6); HEMATOCRIT 51.4 % (37.9-51.0); HEMOGLOBIN 17.3 g/dL (13.5-17.0); LYMPHOCYTES % (AUTO) 16.1 % (13-45); MEAN CORPUSCULAR HEMOGLOBIN 29.3 pg (27.0-33.4); MEAN CORPUSCULAR HGB CONC 33.6 g/dL (32.0-36.0); MEAN CORPUSCULAR VOLUME 87 fl (80-97); MONOCYTES % (AUTO) 9.3 % (3-13); PLATELET COUNT 310 10^3/uL (150-450); RED BLOOD COUNT 5.89 10^6/uL (4.35-5.55); RED CELL DISTRIBUTION WIDTH 14.3 % (11.5-14.0); SEGMENTED NEUTROPHILS % (AUTO) 70.1 % (42-78); TOTAL CELLS COUNTED % (AUTO) 100 %; WHITE BLOOD COUNT 13.4 10^3/uL (4.0-10.5)
--- NOTE | 2019-07-22 15:00 | RADIOLOGY REPORT (SQ) ---
EXAM DESCRIPTION: CHEST SINGLE VIEW COMPLETED DATE/TIME: 07/22/2019 2:33 pm REASON FOR STUDY: SOB COMPARISON: 12/11/2018 NUMBER OF VIEWS: One view. TECHNIQUE: Single frontal radiographic view of the chest acquired. LIMITATIONS: None. FINDINGS: LUNGS AND PLEURA: No opacities, masses or pneumothorax. No pleural effusion. Attenuated bl ood vessels and flattened fredy-diaphragms. MEDIASTINUM AND HILAR STRUCTURES: No masses. Contour normal. HEART AND VASCULAR STRUCTURES: Stable heart size. Normal vasculature. BONES: No acute findings. HARDWARE: None in the chest. OTHER: No other significant finding. IMPRESSION: COPD. NO ACUTE RADIOGRAPHIC FINDING IN THE CHEST. TECHNICAL DOCUMENTATION: JOB ID: [id number] [employer]- All Rights Reserved Reading location - IP/workstation name: [email or web address]
[2019-07-22 15:05] LABS: ALBUMIN 4.9 g/dL (3.5-5.0); ALKALINE PHOSPHATASE 102 U/L (38-126); ANION GAP 13 (5-19); ASPARTATE AMINO TRANSFERASE 32 U/L (17-59); BILIRUBIN,DIRECT 0.3 mg/dL (0.0-0.4); BILIRUBIN,TOTAL 0.8 mg/dL (0.2-1.3); BLOOD UREA NITROGEN 14 mg/dL (7-20); CALCIUM 10.1 mg/dL (8.4-10.2); CARBON DIOXIDE 27 mmol/L (22-30); CHLORIDE 100 mmol/L (98-107); GLUCOSE 101 mg/dL (75-110); POTASSIUM 4.8 mmol/L (3.6-5.0); TOTAL PROTEIN 8.5 g/dL (6.3-8.2)
[2019-07-22 15:36] LABS: NT PRO BNP 33 pg/mL (<125)
[2019-07-22 15:48] LABS: TROPONIN I < 0.012 ng/mL
--- NOTE | 2019-07-22 16:31 | ER Document Report ---
ED General - General Chief Complaint: Shortness Of Breath Stated Complaint: BREATHING PROBLEMS Time Seen by Provider: 07/22/19 14:22 Primary Care Provider: JP JONES MD [Primary Care Provider] - Follow up as needed Notes: 74-year-old male with a history of COPD who states that he has been feeling progressively worse for the past 2 weeks despite using his usual COPD medications. States he has not been feeling any better with [id number] cold medication such as Mucinex. States that he thought he had a pulmonology appointment today so he went to see his gut sorter but found out that it was not until the . When he showed up at the office and asked to be seen anyway they found him to be quite short of breath and quite hypoxic so they sent him here via EMS. Patient complains of a small nonproductive cough, chest congestion, small amount of chest pain that he thinks might come from coughing and some slight rhinorrhea. Denies any fevers. TRAVEL OUTSIDE OF THE [place] IN LAST 30 DAYS: No - Related Data Allergies/Adverse Reactions: No Known Allergies Allergy (Verified 05/30/18 11:16) Past Medical History - General Information source: Patient - Social History Smoking Status: Former Smoker Frequency of alcohol use: None Drug Abuse: None Family History: Reviewed & Not Pertinent Patient has suicidal ideation: No Patient has homicidal ideation: No - Past Medical History Cardiac Medical History: Reports: Hx Heart Attack - 2005, 2016, Hx Hypercholest erolemia Denies: Hx Hypertension Pulmonary Medical History: Reports: Hx Asthma, Hx COPD Neurological Medical History: Denies: Hx Cerebrovascular Accident, Hx Seizures Renal/ Medical History: Denies: Hx Peritoneal Dialysis GI Medical History: Denies: Hx Hepatitis, Hx Hiatal Hernia, Hx Ulcer Infectious Medical History: Denies: Hx Hepatitis Past Surgical History: Reports: Hx Cardiac Surgery - cath and 2 stents, Hx Cholecystectomy, Hx Orthopedic Surgery - right leg metal plate. Denies: Hx Open Heart Surgery, Hx Pacemaker - Immunizations Hx Diphtheria, Pertussis, Tetanus Vaccination: No - unknown Review of Systems - Review of Systems Constitutional: No symptoms reported EENT: See HPI, Nose congestion, Nose discharge Cardiovascular: See HPI, Chest pain Respiratory: See HPI, Cough, Short of breath -: Yes All other systems reviewed and negative Physical Exam - Vital signs Vitals: Pulse Resp BP Pulse Ox 135 H 40 H 188/143 H 90 L 07/22/19 14:00 07/22/19 14:00 07/22/19 14:00 07/22/19 14:00 Interpretation: Hypertensive, Tachycardic, Tachypneic - Notes Notes: GENERAL: Awake, alert, appears short of breath, tripoding. HEAD: Normocephalic, atraumatic EYES: Pupils equal, round and reactive to light, extraocular movements intact. ENT: Oral mucosa moist, tongue midline. NECK: Full range of motion, supple, trachea midline. LUNGS: Appears short of breath, tripoding, tachypneic, using accessory muscles of respiration, diffuse expiratory wheezing. HEART: Tachycardic rate and rhythm, no murmurs, gallops, rubs. ABDOMEN: Soft, nontender, nondistended, bowel sounds present in all 4 quadrants. EXTREMITIES: Moves all 4 extremities spontaneously, no edema, radial and dorsalis pedis pulses 2/4 bilaterally. No cyanosis. NEUROLOGICAL: Alert and oriented x3, [place] is not slurred however he is using 2- 3 word sentences. No facial droop.. PSYCH: Normal mood, normal affect. SKIN: Warm, Dry, normal turgor,. Course - Re-evaluation Re-evalutation: 07/22/19 16:28 Patient placed on BiPAP, given 3 breathing treatments and started on steroids. Patient is significantly improved though he does still have some small expiratory wheezing. Requiring BiPAP settings of 15/5 with 32% oxygen. Attempted to wean him down to 21% however he did not tolerate this and his oxygen saturation was 88% on BiPAP so his oxygen was increased to 32% again. CBC shows leukocytosis at 13.4, hemoconcentration likely due to the hemoglobin of 17.3, venous blood gas is mildly acidotic but otherwise unremarkable, no significant CO2 retention, CMP unremarkable, troponin negative, proBNP within normal range. EKG does not show STEMI. No significant ischemia. Discussed with Dr. Riojas, agrees to accept the patient to his service. - Vital Signs Vital signs: Temp Pulse Resp BP Pulse Ox 135 H 22 H 188/143 H 97 07/22/19 14:00 07/22/19 14:07 07/22/19 14:00 07/22/19 14:07 - Laboratory Result Diagrams: 07/22/19 14:13 07/22/19 14:13 Laboratory results interpreted by me: 07/22/19 07/22/19 07/22/19 14:13 14:13 14:13 WBC 13.4 H RBC 5.89 H Hgb 17.3 H Hct 51.4 H RDW 14.3 H Absolute Neuts (auto) 9.4 H VBG pH 7.27 L Total Protein 8.5 H - EKG Interpretation by Me Additional EKG results interpreted by me: 07/22/19 16:31 EKG shows sinus tachycardia at a rate of 128, normal axis, normal intervals, no ST segment elevations or depressions, T wave flattening in V2, 1, aVL per my interpretation. Discharge - Discharge Clinical Impression: Acute exacerbation of chronic obstructive pulmonary disease (COPD), Acute and chronic respiratory failure with hypoxia Condition: Fair Disposition: ADMITTED INPATIENT Admitting Provider: Vick (Hospitalist) Unit Admitted: Medical Floor Referrals: JP JONES MD [Primary Care Provider] - Follow up as needed
[2019-07-22] MEDS ORDERED: MAGNESIUM HYDROXIDE SUSP 30 ML UDCUP PO PRN (18:49)
[2019-07-22] MEDS ORDERED: ACETAMINOPHEN 325 MG TABLET PO PRN (18:49)
[2019-07-22] MEDS ORDERED: LEVALBUTEROL HCL NEB 1.25 MG/3 ML AMPUL NEB PRN (18:49)
[2019-07-22] MEDS ORDERED: MAG HYDROX/AL HYDROX/SIMETH SUSP 30 ML UDCUP PO PRN (18:49)
[2019-07-22] MEDS ORDERED: NORMAL SALINE 1000 ML 1,000 ML IV ONE (18:58)
[2019-07-22] MEDS ORDERED: GUAIFENESIN/D-METHORPHAN (200-20 MG) SYRUP 10 ML PO PRN (19:05)
[2019-07-22] MEDS ORDERED: NITROGLYCERIN 0.4 MG/TAB 25 TAB/BOTTLE SL PRN (19:23)
--- NOTE | 2019-07-22 19:30 | PDOC H&P ---
History of Present Illness Admission Date/PCP: 07/22/19 17:06 Patient complains of: Cough with shortness of breath History of Present Illness: KASSIDY REDDY is a 74 year old male with a history of coronary artery disease with stenting, hyperlipidemia and COPD. He has been experiencing a slow increase in shortness of breath. His daughter wanted him to go to the doctor last week. He thought he had an appointment today. He went to the trial examiner office and it was not scheduled for today. Fortunately they brought him into the office evaluated him and when they checked his pulse oximetry they called EMS to take him to the hospital. In exam chest x-ray is negative for infiltrate. He does exhibit advanced COPD. He is afebrile. His white blood cell count is elevated and polycythemia is present. His blood pressures have been marginal. This is likely an exacerbation of his COPD in the with bronchitis. The patient will need IV fluids, he is doing well on BiPAP, blood cultures are pending and I will institute an aggressive nebulizer regimen. I will ask his trial examiner to consult as well. Past Medical History Cardiac Medical History: Reports: Myocardial Infarction - 2005, 2017, Hyperlipidema Denies: Hypertension Pulmonary Medical History: Reports: Asthma, Chronic Obstructive Pulmonary Disease (COPD) Neurological Medical History: Denies: Seizures GI Medical History: Denies: Hepatitis, Hiatal Hernia Psychiatric Medical History: Reports: Alcohol Dependency, Tobacco Dependency Hematology: Denies: Anemia, Sickle Cell Disease Past Surgical History Past Surgical History: Reports: Cholecystectomy, Orthopedic Surgery - right leg metal plate Denies: Pacemaker Social History Information Source: Patient Lives with: Alone - Patient is Smoking Status: Former Smoker Electronic Cigarette use?: No Last Time Smoked: 4 weeks ago Frequency of Alcohol Use: None Hx Recreational Drug Use: No Hx Prescription Drug Abuse: No - Advance Directive Resuscitation Status: Do Not Resuscitate Surrogate healthcare decision maker:: Patient's daughter Family History Family History: CAD, CVA - Ruptured cerebral aneurysm, Other - Alcoholism Parental Family History Reviewed: Yes Children Family History Reviewed: Yes Sibling(s) Family History Reviewed.: Yes Medication/Allergy Home Medications: Albuterol Sulfate [Proair HFA Inhalation Aerosol 8.5 gm MDI] 2 puff IH Q4HP PRN 07/22/19 Atorvastatin Calcium [Lipitor 80 mg Tablet] 80 mg PO QHS 07/22/19 Fluticasone/Umeclidin/Vilanter [Trelegy 100-62.5-25 Mcg Ellipta 14 Dose/Dpi] 1 puff IH DAILY 07/22/19 Ipratropium/Albuterol Sulfate [Duoneb 3 ml Ampul] 1 vial NEB Q6 07/22/19 Metoprolol Succinate [Toprol Xl 50 mg Tab.sr] 50 mg PO DAILY 07/22/19 Tiotropium Br/Olodaterol HCl [Stiolto Respimat Inhal [place]] 2 puff IH DAILY 07/22/19 Allergies/Adverse Reactions: No Known Allergies Allergy (Verified 05/30/18 11:16) Review of Systems All systems: reviewed and no additional remarkable complaints except as stated Constitutional: PRESENT: anorexia, fatigue, weakness Respiratory: PRESENT: cough Gastrointestinal: PRESENT: constipation Musculoskeletal: PRESENT: other - Joint pain hands, knees shoulders Psychiatric: PRESENT: depression Physical Exam Vital Signs: Temp Pulse Resp BP Pulse Ox 135 H 27 H 84/66 L 97 07/22/19 14:00 07/22/19 18:31 07/22/19 18:00 07/22/19 18:31 Intake & Output 07/21/19 07/22/19 07/23/19 06:59 06:59 06:59 Weight 90.718 kg General appearance: PRESENT: cooperative, mild distress, well-developed. ABSENT: disheveled Head exam: PRESENT: atraumatic, normocephalic Eye exam: PRESENT: conjunctiva pink, EOMI, other - BiPAP mask in place. ABSENT: scleral icterus Ear exam: PRESENT: normal external ear exam. ABSENT: bleeding, drainage Mouth exam: PRESENT: dry mucosa, neck supple, tongue midline Neck exam: ABSENT: carotid bruit, JVD, lymphadenopathy Respiratory exam: PRESENT: clear to auscultation [place], prolonged expiratory phas, symmetrical, tachypnea. ABSENT: accessory muscle use, rales, rhonchi, wheezes Cardiovascular exam: PRESENT: RRR, +S1, +S2. ABSENT: diastolic murmur, systolic murmur GI/Abdominal exam: PRESENT: normal bowel sounds, soft. ABSENT: distended, guarding, tenderness Rectal exam: PRESENT: deferred Gentrourinary exam: ABSENT: indwelling catheter Extremities exam: ABSENT: pedal edema Musculoskeletal exam: PRESENT: ambulatory, normal inspection. ABSENT: deformity Neurological exam: PRESENT: alert, awake, oriented to person, oriented to place, oriented to time, oriented to situation, CN II-XII grossly intact. ABSENT: altered Psychiatric exam: PRESENT: appropriate affect. ABSENT: agitated, anxious Focused psych exam: ABSENT: delusional, restlessness Skin exam: PRESENT: dry, normal color, warm. ABSENT: rash Results Laboratory Results: 07/22/19 14:13 07/22/19 14:13 07/22/19 07/22/19 07/22/19 14:13 14:13 14:13 WBC 13.4 H RBC 5.89 H Hgb 17.3 H Hct 51.4 H MCV 87 MCH 29.3 MCHC 33.6 RDW 14.3 H Plt Count 310 Seg Neutrophils % 70.1 VBG pH 7.27 L VBG pCO2 62.2 VBG HCO3 28.1 VBG Base Excess -0.7 Sodium 140.2 Potassium 4.8 Chloride 100 Carbon Dioxide 27 Anion Gap 13 BUN 14 Creatinine 1.00 Est GFR ( Amer) > 60 Glucose 101 Calcium 10.1 Total Bilirubin 0.8 AST 32 Alkaline Phosphatase 102 Total Protein 8.5 H Albumin 4.9 07/22/19 14:13 Troponin I < 0.012 NT-Pro-B Natriuret Pep 33 Impressions: Chest X-Ray 07/22/19 14:18 IMPRESSION: COPD. NO ACUTE RADIOGRAPHIC FINDING IN THE CHEST. Assessment and Plan - Diagnosis (1) Acute on chronic respiratory failure with hypoxia and hypercapnia Is this a current diagnosis for this admission?: Yes Plan: Secondary to COPD with bronchitis. Aggressive nebulizer regimen. Mucolytic therapy. Cough suppressant. (2) Acute exacerbation of chronic obstructive pulmonary disease (COPD) Is this a current diagnosis for this admission?: Yes Plan: Slowly building for 2 weeks. Aggressive nebulizer regimen, systemic steroids, mucolytic's and antibiotics for the bronchitis component (3) COPD with acute bronchitis Is this a current diagnosis for this admission?: Yes Plan: As above (4) Polycythemia secondary to hypoxia Is this a current diagnosis for this admission?: Yes Plan: Polycythemia secondary to COPD/hypoxia. Patient may also be slightly volume depleted. We will continue to monitor hemoglobin and he will be receiving 3 L of IV fluid. (5) Hypercholesterolemia Is this a current diagnosis for this admission?: Yes Plan: Continue atorvastatin (6) Coronary artery disease Qualifiers: Coronary Disease-Associated Artery/Lesion type: [place] artery [place] vs. transplanted heart: [place] heart Associated angina: without angina Qualified Code(s): I25.10 - Atherosclerotic heart disease of [place] coronary artery without angina pectoris Is this a current diagnosis for this admission?: Yes Plan: Continue atorvastatin and metoprolol. I did add enteric-coated aspirin 81 mg daily. 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 - Plan Summary Summary: 07/22/2019- The patient has been experiencing increasing shortness of breath over the last 2 weeks. He reports a cough that is productive of minimal sputum however he feels congested in his chest and he has a scratchy throat. He denies sinus congestion or postnasal drip and therefore he will be on an aggressive regimen of duo nebs with budesonide every 6 hours and Xopenex available as needed. He will receive intravenous steroids and I have ordered mucolytic's as well. His blood pressure has been marginal and I have ordered 3 L of IV fluid. We will repeat his blood work tomorrow. Anticipate a 3 to 4-day stay. In addition I have asked that the patient be referred to pulmonary rehab at discharge. - Time Time Spent with patient: 35 or more minutes Medications reviewed and adjusted accordingly: Yes Anticipated discharge: Home - Inpatient Certification Based on my medical assessment, after consideration of the patient's comorbid ities, presenting symptoms, or acuity I expect that the services needed warrant INPATIENT care.: Yes I certify that my determination is in accordance with my understanding of Medicare's requirements for reasonable and necessary INPATIENT services [42 CFR 412.3e].: Yes Medical Necessity: Need For IV Fluids, Need for Nebulizer Therapy and Monitoring of Response, Need for IV Antibiotics, Risk of Complication if Not Cared For in Hospital Post Hospital Care: D/C [employer] Documentation
--- NOTE | 2019-07-22 19:41 | ADVANCED CARE ---
- Diagnosis (1) Acute on chronic respiratory failure with hypoxia and hypercapnia Diagnosis Current: Yes (2) Acute exacerbation of chronic obstructive pulmonary disease (COPD) Diagnosis Current: Yes (3) COPD with acute bronchitis Diagnosis Current: Yes (4) Polycythemia secondary to hypoxia Diagnosis Current: Yes (5) Hypercholesterolemia Diagnosis Current: Yes (6) Coronary artery disease Diagnosis Current: Yes Attendance: Discussion was held with the patient at bedside Resuscitation Status: Do Not Resuscitate Discussion: It was interesting. When I brought up the decision of CODE STATUS the patient in fact volunteered the fact that his quality of life is not what it was. He can only take 10 steps before becoming short of breath. He has no energy and therefore does a poor job with upkeep with his house. He states that dishes and silverware will sit in the sink. I can only imagine that his appetite has been poor as well. He does admit that over the last 2 weeks he has had a very poor appetite. He admitted that, due to the quality of his life, he would prefer not to be intubated or resuscitated. If his prognosis changes in his status declines he would rather be allowed to pass away peacefully as opposed to going through intubation and resuscitation. He stated that he has talked to his daughter about this. He worries that if he brings up this discussion at this point it would scare her daughter thinking that his current condition is worse than it is. I did remove the living well from the admissions packet. I pointed out where he could document exactly what we talked about. He could make his daughter the primary decision maker and his son secondary. He could confirm that he does not want to be intubated or receive CPR/resuscitation. He can also further point out limitations with regard to feeding tubes, nursing homes and other interventions that he would not prefer to have. He was in fact very insightful during this discussion. Care Planning Goals: To transfer the points) from our discussion to document such as the living will and closed in the admissions packet. Document(s) Completed: None Time Spent: 25 minutes
[2019-07-22] MEDS ORDERED: INFLUENZA QUAD (6MOS+) 2019-20 VAC 0.5 ML SYR IM ONE (20:19)
[2019-07-22] MEDS: IPRATROPIUM/ALBUTEROL 0.5-2.5 MG/3 ML AMPUL NEB SCH (21:51)
[2019-07-22] MEDS: BUDESONIDE NEB 0.25 MG/2 ML AMPUL NEB SCH (21:53)
[2019-07-22] MEDS: METHYLPREDNISOLONE INJ 40 MG/1 ML SDV IV SCH (21:54)
[2019-07-22] MEDS: GUAIFENESIN 600 MG TABLET.SA PO SCH (21:55)
[2019-07-22] MEDS: ASPIRIN 81 MG TABLET, ENT COATED PO SCH (21:55)
[2019-07-22] MEDS: ATORVASTATIN CALCIUM 80 MG TABLET PO SCH (21:55)
[2019-07-22] MEDS: FAMOTIDINE 20 MG TABLET PO SCH (21:55)
[2019-07-22] MEDS: AZITHROMYCIN 500 MG in DEXTROSE 5%-WATER 250 ML IV SCH (21:55)
[2019-07-22] MEDS: NORMAL SALINE 1000 ML 1,000 ML IV PRN (21:56)
--- NOTE | 2019-07-22 22:01 | EKG REPORT ---
SEVERITY:- ABNORMAL ECG - SINUS TACHYCARDIA ATRIAL PREMATURE COMPLEX NONSPECIFIC T ABNORMALITIES, LATERAL LEADS : Confirmed by: Amanda Livingston 22-Jul-2019 22:01:19
[2019-07-22 22:58] LABS: APPEARANCE,URINE CLEAR; BILIRUBIN,URINE NEGATIVE (NEGATIVE); COLOR,URINE YELLOW; GLUCOSE, URINE NEGATIVE (NEGATIVE); KETONES,URINE NEGATIVE (NEGATIVE); LEUKOCYTE ESTERASE,URINE NEGATIVE (NEGATIVE); NITRITE,URINE NEGATIVE (NEGATIVE); PROTEIN,URINE NEGATIVE (NEGATIVE); URINE SPECIFIC GRAVITY 1.015
[2019-07-23] MEDS: BUDESONIDE NEB 0.25 MG/2 ML AMPUL NEB SCH ×3 (02:45→14:29)
[2019-07-23] MEDS: IPRATROPIUM/ALBUTEROL 0.5-2.5 MG/3 ML AMPUL NEB SCH ×4 (02:45→20:23)
[2019-07-23 05:12] LABS: ABSOLUTE LYMPHOCYTES (AUTO) 0.7 10^3/uL (0.5-4.7); ABSOLUTE MONOCYTES (AUTO) 0.2 10^3/uL (0.1-1.4); ABSOLUTE NEUT (AUTO) 9.9 10^3/uL (1.7-8.2); BASOPHILS % (AUTO) 0.1 % (0-2); HEMATOCRIT 45.7 % (37.9-51.0); HEMOGLOBIN 15.4 g/dL (13.5-17.0); LYMPHOCYTES % (AUTO) 6.6 % (13-45); MEAN CORPUSCULAR HEMOGLOBIN 29.6 pg (27.0-33.4); MEAN CORPUSCULAR HGB CONC 33.7 g/dL (32.0-36.0); MEAN CORPUSCULAR VOLUME 88 fl (80-97); MONOCYTES % (AUTO) 1.9 % (3-13); PLATELET COUNT 251 10^3/uL (150-450); RED CELL DISTRIBUTION WIDTH 14.7 % (11.5-14.0); SEGMENTED NEUTROPHILS % (AUTO) 91.4 % (42-78); TOTAL CELLS COUNTED % (AUTO) 100 %; WHITE BLOOD COUNT 10.8 10^3/uL (4.0-10.5)
[2019-07-23 05:29] LABS: ANION GAP 13 (5-19); BLOOD UREA NITROGEN 14 mg/dL (7-20); CALCIUM 9.3 mg/dL (8.4-10.2); CARBON DIOXIDE 22 mmol/L (22-30); CHLORIDE 105 mmol/L (98-107); GLUCOSE 222 mg/dL (75-110); POTASSIUM 4.7 mmol/L (3.6-5.0)
[2019-07-23] MEDS: METHYLPREDNISOLONE INJ 40 MG/1 ML SDV IV SCH ×2 (05:35→13:22)
[2019-07-23] MEDS: NORMAL SALINE 1000 ML 1,000 ML IV PRN (05:36)
[2019-07-23] MEDS: DOCUSATE SODIUM 100 MG CAPSULE PO SCH ×2 (09:02→17:19)
[2019-07-23] MEDS: METOPROLOL SUCCINATE 50 MG TAB.SR.24H PO SCH (09:02)
[2019-07-23] MEDS: GUAIFENESIN 600 MG TABLET.SA PO SCH ×2 (09:02→22:23)
[2019-07-23] MEDS: LACTOBACILLUS ACIDOPHILUS 250 MG TAB PO SCH ×2 (09:02→17:19)
[2019-07-23] MEDS: FAMOTIDINE 20 MG TABLET PO SCH ×2 (09:02→22:23)
[2019-07-23] MEDS: ENOXAPARIN SODIUM INJ 40 MG/0.4 ML DISP.SYRIN SUBCUT SCH (09:03)
[2019-07-23] MEDS ORDERED: METOPROLOL SUCCINATE 50 MG TAB.SR.24H PO SCH (10:00)
--- NOTE | 2019-07-23 17:18 | PDOC PROGRESS REPORT ---
Subjective Progress Note for:: 07/23/19 Subjective:: Currently eating dinner on nasal cannula. Facial flushing. He is tachypneic. Reason For Visit: EXACERBATION COPD Physical Exam Vital Signs: Temp Pulse Resp BP Pulse Ox 97.6 F 97 18 119/84 91 L 07/23/19 15:37 07/23/19 15:37 07/23/19 15:37 07/23/19 15:37 07/23/19 15:37 Intake & Output 07/22/19 07/23/19 07/24/19 06:59 06:59 06:59 Intake Total 2450 1480 Output Total 450 Balance 2450 1030 Weight 90 kg General appearance: PRESENT: cooperative, mild distress - Mild to moderate distress, well-developed Head exam: PRESENT: atraumatic, normocephalic Mouth exam: PRESENT: dry mucosa, tongue midline Respiratory exam: PRESENT: crackles, decreased breath sounds, prolonged expiratory phas, tachypnea. ABSENT: rales, wheezes Cardiovascular exam: PRESENT: RRR, +S1, +S2 GI/Abdominal exam: PRESENT: normal bowel sounds, soft. ABSENT: distended, tenderness Neurological exam: PRESENT: alert, awake, oriented to person, oriented to place, oriented to time, oriented to situation, CN II-XII grossly intact Psychiatric exam: PRESENT: appropriate affect. ABSENT: agitated, anxious Results Laboratory Results: 07/23/19 03:51 07/23/19 03:51 07/22/19 07/23/19 07/23/19 22:40 03:51 03:51 WBC 10.8 H RBC 5.20 Hgb 15.4 Hct 45.7 MCV 88 MCH 29.6 MCHC 33.7 RDW 14.7 H Plt Count 251 Seg Neutrophils % 91.4 H Sodium 139.5 Potassium 4.7 Chloride 105 Carbon Dioxide 22 Anion Gap 13 BUN 14 Creatinine 0.76 Est GFR ( Amer) > 60 Glucose 222 H Calcium 9.3 Magnesium 2.1 Urine Color YELLOW Urine Appearance CLEAR Urine pH 6.0 Ur Specific [place] 1.015 Urine Protein NEGATIVE Urine Glucose (UA) NEGATIVE Urine Ketones NEGATIVE Urine Blood NEGATIVE Urine Nitrite NEGATIVE Ur Leukocyte Esterase NEGATIVE Urine WBC (Auto) 0 Urine RBC (Auto) 0 07/22/19 14:13 Troponin I < 0.012 NT-Pro-B Natriuret Pep 33 Impressions: Chest X-Ray 07/22/19 14:18 IMPRESSION: COPD. NO ACUTE RADIOGRAPHIC FINDING IN THE CHEST. Assessment and Plan - Diagnosis (1) Acute on chronic respiratory failure with hypoxia and hypercapnia Is this a current diagnosis for this admission?: Yes (2) Acute exacerbation of chronic obstructive pulmonary disease (COPD) Is this a current diagnosis for this admission?: Yes (3) COPD with acute bronchitis Is this a current diagnosis for this admission?: Yes (4) Polycythemia secondary to hypoxia Is this a current diagnosis for this admission?: Yes (5) Hypercholesterolemia Is this a current diagnosis for this admission?: Yes (6) Coronary artery disease Qualifiers: Coronary Disease-Associated Artery/Lesion type: [place] artery [place] vs. transplanted heart: [place] heart Associated angina: without angina Qualified Code(s): I25.10 - Atherosclerotic heart disease of [place] coronary artery without angina pectoris Is this a current diagnosis for this admission?: Yes - Plan Summary Summary: 07/22/2019- The patient has been experiencing increasing shortness of breath over the last 2 weeks. He reports a cough that is productive of minimal sputum however he feels congested in his chest and he has a scratchy throat. He denies sinus congestion or postnasal drip and therefore he will be on an aggressive regimen of duo nebs with budesonide every 6 hours and Xopenex available as needed. He will receive intravenous steroids and I have ordered mucolytic's as well. His blood pressure has been marginal and I have ordered 3 L of IV fluid. We will repeat his blood work tomorrow. Anticipate a 3 to 4-day stay. In addition I have asked that the patient be referred to pulmonary rehab at discharge. 07/23/2019-I discussed the need to have windows of rest from BiPAP and not trying to extend his time in a single window. I will increase his systemic steroids and continue his nebulizer treatments. We will continue his antibiotics as well. - Time Time Spent with patient: 15-24 minutes Medications reviewed and adjusted accordingly: Yes Anticipated discharge: Home, Home with Homehealth
[2019-07-23] MEDS: BUDESONIDE NEB 0.5 MG/2 ML AMPUL NEB SCH (20:23)
[2019-07-23] MEDS: AZITHROMYCIN 500 MG in DEXTROSE 5%-WATER 250 ML IV SCH (22:22)
[2019-07-23] MEDS: ATORVASTATIN CALCIUM 80 MG TABLET PO SCH (22:23)
[2019-07-23] MEDS: METHYLPREDNISOLONE INJ 125 MG/2 ML SDV IV SCH (22:23)
[2019-07-23] MEDS: ASPIRIN 81 MG TABLET, ENT COATED PO SCH (22:23)
[2019-07-23] MEDS: FLUTICASONE NASAL SPRAY 50 MCG/SPRY 120 SPRAY/16 GM NASL SCH (22:25)
[2019-07-24] MEDS: IPRATROPIUM/ALBUTEROL 0.5-2.5 MG/3 ML AMPUL NEB SCH ×4 (03:14→20:20)
[2019-07-24] MEDS: METHYLPREDNISOLONE INJ 125 MG/2 ML SDV IV SCH ×3 (05:54→21:59)
[2019-07-24] MEDS: BUDESONIDE NEB 0.5 MG/2 ML AMPUL NEB SCH ×2 (08:32→20:20)
[2019-07-24] MEDS: LACTOBACILLUS ACIDOPHILUS 250 MG TAB PO SCH ×2 (09:19→17:39)
[2019-07-24] MEDS: METOPROLOL SUCCINATE 50 MG TAB.SR.24H PO SCH (09:19)
[2019-07-24] MEDS: GUAIFENESIN 600 MG TABLET.SA PO SCH ×2 (09:20→22:00)
[2019-07-24] MEDS: ENOXAPARIN SODIUM INJ 40 MG/0.4 ML DISP.SYRIN SUBCUT SCH (09:20)
[2019-07-24] MEDS: FAMOTIDINE 20 MG TABLET PO SCH ×2 (09:20→22:00)
[2019-07-24] MEDS: DOCUSATE SODIUM 100 MG CAPSULE PO SCH ×2 (09:20→17:39)
[2019-07-24] MEDS: FLUTICASONE NASAL SPRAY 50 MCG/SPRY 120 SPRAY/16 GM NASL SCH ×2 (09:20→22:00)
--- NOTE | 2019-07-24 19:07 | PDOC PROGRESS REPORT ---
Subjective Progress Note for:: 07/24/19 Subjective:: The patient is resting in bed on his BiPAP. He is much more comfortable today and admits that he believes it is due to the spacing of his breaks from BiPAP. Reason For Visit: EXACERBATION COPD Physical Exam Vital Signs: Temp Pulse Resp BP Pulse Ox 97.7 F 80 20 107/62 96 07/24/19 15:12 07/24/19 15:12 07/24/19 15:56 07/24/19 15:12 07/24/19 15:56 Intake & Output 07/23/19 07/24/19 07/25/19 06:59 06:59 06:59 Intake Total 2450 2756 1566 Output Total 1200 2000 Balance 2450 1556 -434 Weight 90 kg 92.5 kg General appearance: PRESENT: no acute distress, well-developed Respiratory exam: PRESENT: rhonchi, symmetrical, tachypnea - Slightly tachypneic but this could be related to our discussion and his increased shortness of breath while talking, unlabored. ABSENT: rales Cardiovascular exam: PRESENT: RRR, +S1, +S2 GI/Abdominal exam: PRESENT: normal bowel sounds, soft. ABSENT: tenderness Musculoskeletal exam: PRESENT: ambulatory Neurological exam: PRESENT: alert, awake, oriented to person, oriented to place, oriented to time, oriented to situation Results Laboratory Results: 07/23/19 03:51 07/23/19 03:51 07/22/19 14:13 Troponin I < 0.012 NT-Pro-B Natriuret Pep 33 Impressions: Chest X-Ray 07/22/19 14:18 IMPRESSION: COPD. NO ACUTE RADIOGRAPHIC FINDING IN THE CHEST. Assessment and Plan - Diagnosis (1) Acute on chronic respiratory failure with hypoxia and hypercapnia Is this a current diagnosis for this admission?: Yes (2) Acute exacerbation of chronic obstructive pulmonary disease (COPD) Is this a current diagnosis for this admission?: Yes (3) COPD with acute bronchitis Is this a current diagnosis for this admission?: Yes (4) Polycythemia secondary to hypoxia Is this a current diagnosis for this admission?: Yes (5) Hypercholesterolemia Is this a current diagnosis for this admission?: Yes (6) Coronary artery disease Qualifiers: Coronary Disease-Associated Artery/Lesion type: [place] artery [place] vs. transplanted heart: [place] heart Associated angina: without angina Qualified Code(s): I25.10 - Atherosclerotic heart disease of [place] coronary artery without angina pectoris Is this a current diagnosis for this admission?: Yes - Plan Summary Summary: 07/22/2019- The patient has been experiencing increasing shortness of breath over the last 2 weeks. He reports a cough that is productive of minimal sputum however he feels congested in his chest and he has a scratchy throat. He denies sinus congestion or postnasal drip and therefore he will be on an aggressive regimen of duo nebs with budesonide every 6 hours and Xopenex available as needed. He will receive intravenous steroids and I have ordered mucolytic's as well. His blood pressure has been marginal and I have ordered 3 L of IV fluid. We will repeat his blood work tomorrow. Anticipate a 3 to 4-day stay. In addition I have asked that the patient be referred to pulmonary rehab at discharge. 07/23/2019-I discussed the need to have windows of rest from BiPAP and not trying to extend his time in a single window. I will increase his systemic steroids and continue his nebulizer treatments. We will continue his antibiotics as well. 07/24/2019-when I suggested that the patient may need a sleep study and use of BiPAP or CPAP at home he immediately became quite animated. He stated that he has had a sleep study. He was upset because they asked him to come back to trial BiPAP. He complained that he could not afford these visits and he wondered if they were unnecessary. Possibly they could have combined into one visit. I suggested that Dr. Gamino be consulted on Friday and he could help with any changes in the long-term treatment plan that he would suggest. - Time Time Spent with patient: 15-24 minutes Medications reviewed and adjusted accordingly: Yes Anticipated discharge: Home with Homehealth
[2019-07-24] MEDS: ATORVASTATIN CALCIUM 80 MG TABLET PO SCH (21:59)
[2019-07-24] MEDS: ASPIRIN 81 MG TABLET, ENT COATED PO SCH (22:00)
[2019-07-24] MEDS: AZITHROMYCIN 500 MG in DEXTROSE 5%-WATER 250 ML IV SCH (22:01)
[2019-07-25] MEDS: IPRATROPIUM/ALBUTEROL 0.5-2.5 MG/3 ML AMPUL NEB SCH ×4 (02:21→20:05)
[2019-07-25] MEDS: METHYLPREDNISOLONE INJ 125 MG/2 ML SDV IV SCH (06:13)
[2019-07-25] MEDS: BUDESONIDE NEB 0.5 MG/2 ML AMPUL NEB SCH ×2 (07:44→20:05)
[2019-07-25] MEDS: METOPROLOL SUCCINATE 50 MG TAB.SR.24H PO SCH (10:43)
[2019-07-25] MEDS: GUAIFENESIN 600 MG TABLET.SA PO SCH ×2 (10:43→21:22)
[2019-07-25] MEDS: LACTOBACILLUS ACIDOPHILUS 250 MG TAB PO SCH ×2 (10:43→18:10)
[2019-07-25] MEDS: DOCUSATE SODIUM 100 MG CAPSULE PO SCH ×2 (10:43→18:10)
[2019-07-25] MEDS: FLUTICASONE NASAL SPRAY 50 MCG/SPRY 120 SPRAY/16 GM NASL SCH ×2 (10:46→21:21)
[2019-07-25] MEDS: ENOXAPARIN SODIUM INJ 40 MG/0.4 ML DISP.SYRIN SUBCUT SCH (10:47)
[2019-07-25] MEDS: METHYLPREDNISOLONE INJ 40 MG/1 ML SDV IV SCH ×2 (15:24→21:22)
[2019-07-25] MEDS: FAMOTIDINE INJ/PF 20 MG/2 ML SDV IV SCH ×2 (15:24→21:22)
--- NOTE | 2019-07-25 17:05 | PDOC PROGRESS REPORT ---
Subjective Progress Note for:: 07/25/19 Subjective:: This is 75-year-old male who was admitted for severe COPD exacerbation. Patient was placed on BiPAP and was started on IV steroids. No acute event overnight. Patient was off BiPAP 8 AM today. He appears comfortable and saturating well on nasal cannula upon encounter. He says he feels better today. Denies chest pain. Currently on high dose IV steroids. Reason For Visit: EXACERBATION COPD Physical Exam Vital Signs: Temp Pulse Resp BP Pulse Ox 98.2 F 86 20 111/57 L 98 07/25/19 15:55 07/25/19 15:55 07/25/19 15:55 07/25/19 15:55 07/25/19 15:55 Intake & Output 07/24/19 07/25/19 07/26/19 06:59 06:59 06:59 Intake Total 2756 2666 360 Output Total 1200 2620 700 Balance 1556 46 -340 Weight 203 lb 14.841 oz 203 lb 11.314 oz General appearance: PRESENT: no acute distress, well-developed, well-nourished Head exam: PRESENT: atraumatic, normocephalic Eye exam: PRESENT: conjunctiva pink, EOMI, PERRLA. ABSENT: scleral icterus Ear exam: PRESENT: normal external ear exam Mouth exam: PRESENT: moist, tongue midline Neck exam: ABSENT: carotid bruit, JVD, lymphadenopathy, thyromegaly Respiratory exam: PRESENT: rhonchi, wheezes. ABSENT: rales Cardiovascular exam: PRESENT: RRR. ABSENT: diastolic murmur, rubs, systolic murmur Pulses: PRESENT: normal dorsalis pedis pul GI/Abdominal exam: PRESENT: normal bowel sounds, soft. ABSENT: distended, guarding, mass, organolmegaly, rebound, tenderness Rectal exam: PRESENT: deferred Neurological exam: PRESENT: alert, awake, oriented to person, oriented to place, oriented to time, oriented to situation, CN II-XII grossly intact. ABSENT: motor sensory deficit Results Laboratory Results: 07/23/19 03:51 07/23/19 03:51 07/22/19 14:13 Troponin I < 0.012 NT-Pro-B Natriuret Pep 33 Impressions: Chest X-Ray 07/22/19 14:18 IMPRESSION: COPD. NO ACUTE RADIOGRAPHIC FINDING IN THE CHEST. Assessment and Plan - Diagnosis (1) Acute and chronic respiratory failure with hypoxia Is this a current diagnosis for this admission?: Yes Plan: Secondary to COPD exacerbation. Currently saturating well on 3 L via nasal cannula. (2) Acute exacerbation of chronic obstructive pulmonary disease (COPD) Is this a current diagnosis for this admission?: Yes Plan: Currently on Solu-Medrol 80 mg IV every 8. Decrease Solu-Medrol to 40 every 8. Continue breathing treatments. (3) Coronary artery disease Qualifiers: Coronary Disease-Associated Artery/Lesion type: [place] artery [place] vs. transplanted heart: [place] heart Associated angina: without angina Qualified Code(s): I25.10 - Atherosclerotic heart disease of [place] coronary artery without angina pectoris Is this a current diagnosis for this admission?: Yes Plan: Stable. Continue atorvastatin, aspirin and metoprolol. - Plan Summary Summary: 07/22/2019- The patient has been experiencing increasing shortness of breath over the last 2 weeks. He reports a cough that is productive of minimal sputum however he feels congested in his chest and he has a scratchy throat. He denies sinus congestion or postnasal drip and therefore he will be on an aggressive regimen of duo nebs with budesonide every 6 hours and Xopenex available as needed. He will receive intravenous steroids and I have ordered mucolytic's as well. His blood pressure has been marginal and I have ordered 3 L of IV fluid. We will repeat his blood work tomorrow. Anticipate a 3 to 4-day stay. In addition I have asked that the patient be referred to pulmonary rehab at discharge. 07/23/2019-I discussed the need to have windows of rest from BiPAP and not trying to extend his time in a single window. I will increase his systemic steroids and continue his nebulizer treatments. We will continue his antibiotics as well. 07/24/2019-when I suggested that the patient may need a sleep study and use of BiPAP or CPAP at home he immediately became quite animated. He stated that he has had a sleep study. He was upset because they asked him to come back to trial BiPAP. He complained that he could not afford these visits and he wondered if they were unnecessary. Possibly they could have combined into one visit. I suggested that Dr. Gamino be consulted on Friday and he could help with any changes in the long-term treatment plan that he would suggest. - Time Time Spent with patient: 25-34 minutes
[2019-07-25] MEDS: FAMOTIDINE 20 MG TABLET PO SCH (18:08)
[2019-07-25] MEDS: ASPIRIN 81 MG TABLET, ENT COATED PO SCH (21:21)
[2019-07-25] MEDS: ATORVASTATIN CALCIUM 80 MG TABLET PO SCH (21:21)
[2019-07-25] MEDS: AZITHROMYCIN 500 MG in DEXTROSE 5%-WATER 250 ML IV SCH (21:22)
[2019-07-26] MEDS: IPRATROPIUM/ALBUTEROL 0.5-2.5 MG/3 ML AMPUL NEB SCH ×3 (02:27→14:00)
[2019-07-26] MEDS: METHYLPREDNISOLONE INJ 40 MG/1 ML SDV IV SCH ×2 (06:37→13:35)
[2019-07-26] MEDS: BUDESONIDE NEB 0.5 MG/2 ML AMPUL NEB SCH (09:03)
[2019-07-26] MEDS: METOPROLOL SUCCINATE 50 MG TAB.SR.24H PO SCH (09:30)
[2019-07-26] MEDS: LACTOBACILLUS ACIDOPHILUS 250 MG TAB PO SCH (09:30)
[2019-07-26] MEDS: DOCUSATE SODIUM 100 MG CAPSULE PO SCH (09:30)
[2019-07-26] MEDS: GUAIFENESIN 600 MG TABLET.SA PO SCH (09:30)
[2019-07-26] MEDS: ENOXAPARIN SODIUM INJ 40 MG/0.4 ML DISP.SYRIN SUBCUT SCH (09:30)
[2019-07-26] MEDS: FLUTICASONE NASAL SPRAY 50 MCG/SPRY 120 SPRAY/16 GM NASL SCH (09:30)
[2019-07-26] MEDS: FAMOTIDINE INJ/PF 20 MG/2 ML SDV IV SCH (09:30)
[2019-07-26 14:44] VITALS: BP 119/67
--- NOTE | 2019-07-26 17:04 | PDOC DISCHARGE SUMMARY ---
Impression - Admit/DC Date/PCP Admission Date/Primary Care Provider: 07/22/19 17:06 Discharge Date: 07/26/19 - Discharge Diagnosis (1) Acute and chronic respiratory failure with hypoxia Is this a current diagnosis for this admission?: Yes (2) Acute exacerbation of chronic obstructive pulmonary disease (COPD) Is this a current diagnosis for this admission?: Yes (3) Coronary artery disease Is this a current diagnosis for this admission?: Yes - Additional Information Resuscitation Status: Do Not Resuscitate Discharge Diet: As Tolerated Discharge Activity: Activity As Tolerated, Balance Activity w/Rest Referrals: [facility] [Provider Group] - 08/03/19 2:30 pm JP GAMINO MD [ACTIVE STAFF] - 07/29/19 2:00 pm Prescriptions: Prednisone [Deltasone 20 mg Tablet] 20 mg PO BID 5 Days #10 tablet Aspirin [Ecotrin 81 mg EC Tablet] 81 mg PO QHS #30 tabec Home Medications: Albuterol Sulfate [Proair HFA Inhalation Aerosol 8.5 gm MDI] 2 puff IH Q4HP PRN 07/22/19 Atorvastatin Calcium [Lipitor 80 mg Tablet] 80 mg PO QHS 07/22/19 Fluticasone/Umeclidin/Vilanter [Trelegy 100-62.5-25 Mcg Ellipta 14 Dose/Dpi] 1 puff IH DAILY 07/22/19 Ipratropium/Albuterol Sulfate [Duoneb 3 ml Ampul] 1 vial NEB Q6 07/22/19 Metoprolol Succinate [Toprol Xl 50 mg Tab.sr] 50 mg PO DAILY 07/22/19 Tiotropium Br/Olodaterol HCl [Stiolto Respimat Inhal [place]] 2 puff IH DAILY 07/22/19 Aspirin [Ecotrin 81 mg EC Tablet] 81 mg PO QHS #30 tabec 07/26/19 Prednisone [Deltasone 20 mg Tablet] 20 mg PO BID 5 Days #10 tablet 07/26/19 History of Present Illiness History of Present Illness: Admitting hospitalist's H&P: KASSIDY REDDY is a 74 year old male with a history of coronary artery disease with stenting, hyperlipidemia and COPD. He has been experiencing a slow increase in shortness of breath. His daughter wanted him to go to the doctor last week. He thought he had an appointment today. He went to the pulmon ologist office and it was not scheduled for today. Fortunately they brought him into the office evaluated him and when they checked his pulse oximetry they called EMS to take him to the hospital. In exam chest x-ray is negative for infiltrate. He does exhibit advanced COPD. He is afebrile. His white blood cell count is elevated and polycythemia is present. His blood pressures have been marginal. This is likely an exacerbation of his COPD in the with bronchitis. The patient will need IV fluids, he is doing well on BiPAP, blood cultures are pending and I will institute an aggressive nebulizer regimen. Hospital Course Hospital Course: This is 75-year-old male who was admitted for severe COPD exacerbation. Patient was placed on BiPAP and was started on IV steroids and breathing treatments. He did significantly improve with above treatments. He was weaned off BiPAP. He returned to his baseline. On day of discharge, he had very minimal wheezing. He says that he has occasional wheezes on his baseline. He did qualify for home O2. He has a confirmed follow-up appointment with Dr. Gamino in 2 days. He will be discharged on 5 more days of prednisone. He will continue his COPD home regimen. Physical Exam Vital Signs: Temp Pulse Resp BP Pulse Ox 97.8 F 82 16 119/67 92 07/26/19 14:40 07/26/19 14:40 07/26/19 14:40 07/26/19 14:40 07/26/19 14:40 Intake & Output 07/25/19 07/26/19 07/27/19 06:59 06:59 06:59 Intake Total 2916 1020 480 Output Total 2620 1425 600 Balance 296 -405 -120 Weight 203 lb 11.314 oz 201 lb 8.04 oz General appearance: PRESENT: no acute distress, well-developed, well-nourished Head exam: PRESENT: atraumatic, normocephalic Eye exam: PRESENT: conjunctiva pink, EOMI, PERRLA. ABSENT: scleral icterus Ear exam: PRESENT: normal external ear exam Mouth exam: PRESENT: moist, tongue midline Neck exam: ABSENT: carotid bruit, JVD, lymphadenopathy, thyromegaly Respiratory exam: PRESENT: rhonchi, wheezes - minimal wheezes. ABSENT: rales Cardiovascular exam: PRESENT: RRR. ABSENT: diastolic murmur, rubs, systolic murmur Pulses: PRESENT: normal dorsalis pedis pul GI/Abdominal exam: PRESENT: normal bowel sounds, soft. ABSENT: distended, guarding, mass, organolmegaly, rebound, tenderness Rectal exam: PRESENT: deferred Extremities exam: PRESENT: full ROM. ABSENT: calf tenderness, clubbing, pedal edema Neurological exam: PRESENT: alert, awake, oriented to person, oriented to place, oriented to time, oriented to situation, CN II-XII grossly intact. ABSENT: motor sensory deficit Results Laboratory Results: WBC 10.8 10^3/uL (4.0-10.5) H 07/23/19 03:51 RBC 5.20 10^6/uL (4.35-5.55) 07/23/19 03:51 Hgb 15.4 g/dL (13.5-17.0) 07/23/19 03:51 Hct 45.7 % (37.9-51.0) 07/23/19 03:51 MCV 88 fl (80-97) 07/23/19 03:51 MCH 29.6 pg (27.0-33.4) 07/23/19 03:51 MCHC 33.7 g/dL (32.0-36.0) 07/23/19 03:51 RDW 14.7 % (11.5-14.0) H 07/23/19 03:51 Plt Count 251 10^3/uL (150-450) 07/23/19 03:51 Lymph % (Auto) 6.6 % (13-45) L 07/23/19 03:51 [place] % (Auto) 1.9 % (3-13) L 07/23/19 03:51 Eos % (Auto) 0.0 % (0-6) 07/23/19 03:51 Baso % (Auto) 0.1 % (0-2) 07/23/19 03:51 Absolute Neuts (auto) 9.9 10^3/uL (1.7-8.2) H 07/23/19 03:51 Absolute Lymphs (auto) 0.7 10^3/uL (0.5-4.7) 07/23/19 03:51 Absolute Monos (auto) 0.2 10^3/uL (0.1-1.4) 07/23/19 03:51 Absolute Eos (auto) 0.0 10^3/uL (0.0-0.6) 07/23/19 03:51 Absolute Basos (auto) 0.0 10^3/uL (0.0-0.2) 07/23/19 03:51 Seg Neutrophils % 91.4 % (42-78) H 07/23/19 03:51 VBG pH 7.27 (7.30-7.42) L 07/22/19 14:13 VBG pCO2 62.2 mmHg (35-63) 07/22/19 14:13 VBG HCO3 28.1 mmol/L (20-32) 07/22/19 14:13 VBG Base Excess -0.7 mmol/L 07/22/19 14:13 Sodium 139.5 mmol/L (137-145) 07/23/19 03:51 Potassium 4.7 mmol/L (3.6-5.0) 07/23/19 03:51 Chloride 105 mmol/L (98-107) 07/23/19 03:51 Carbon Dioxide 22 mmol/L (22-30) 07/23/19 03:51 Anion Gap 13 (5-19) 07/23/19 03:51 BUN 14 mg/dL (7-20) 07/23/19 03:51 Creatinine 0.76 mg/dL (0.52-1.25) 07/23/19 03:51 Est GFR ( Amer) > 60 (>60) 07/23/19 03:51 Est GFR (MDRD) Non-Af > 60 (>60) 07/23/19 03:51 Glucose 222 mg/dL (75-110) H 07/23/19 03:51 Calcium 9.3 mg/dL (8.4-10.2) 07/23/19 03:51 Magnesium 2.1 mg/dL (1.6-2.3) 07/23/19 03:51 Total Bilirubin 0.8 mg/dL (0.2-1.3) 07/22/19 14:13 Direct Bilirubin 0.3 mg/dL (0.0-0.4) 07/22/19 14:13 Neonat Total Bilirubin Not Reportable 07/22/19 14:13 Neonat Direct Bilirubin Not Reportable 07/22/19 14:13 Neonat Indirect Bili Not Reportable 07/22/19 14:13 AST 32 U/L (17-59) 07/22/19 14:13 ALT 35 U/L (<50) 07/22/19 14:13 Alkaline Phosphatase 102 U/L (38-126) 07/22/19 14:13 Troponin I < 0.012 ng/mL 07/22/19 14:13 NT-Pro-B Natriuret Pep 33 pg/mL (<125) 07/22/19 14:13 Total Protein 8.5 g/dL (6.3-8.2) H 07/22/19 14:13 Albumin 4.9 g/dL (3.5-5.0) 07/22/19 14:13 Urine Color YELLOW 07/22/19 22:40 Urine Appearance CLEAR 07/22/19 22:40 Urine pH 6.0 (5.0-9.0) 07/22/19 22:40 Ur Specific [place] 1.015 07/22/19 22:40 Urine Protein NEGATIVE mg/dL (NEGATIVE) 07/22/19 22:40 Urine Glucose (UA) NEGATIVE mg/dL (NEGATIVE) 07/22/19 22:40 Urine Ketones NEGATIVE mg/dL (NEGATIVE) 07/22/19 22:40 Urine Blood NEGATIVE (NEGATIVE) 07/22/19 22:40 Urine Nitrite NEGATIVE (NEGATIVE) 07/22/19 22:40 Urine Bilirubin NEGATIVE (NEGATIVE) 07/22/19 22:40 Urine Urobilinogen 4.0 mg/dL (<2.0) H 07/22/19 22:40 Ur Leukocyte Esterase NEGATIVE (NEGATIVE) 07/22/19 22:40 Urine WBC (Auto) 0 /HPF 07/22/19 22:40 Urine RBC (Auto) 0 /HPF 07/22/19 22:40 Urine Mucus (Auto) RARE /LPF 07/22/19 22:40 Urine Ascorbic Acid NEGATIVE (NEGATIVE) 07/22/19 22:40 07/22/19 14:13 Troponin I < 0.012 NT-Pro-B Natriuret Pep 33 Impressions: Chest X-Ray 07/22/19 14:18 IMPRESSION: COPD. NO ACUTE RADIOGRAPHIC FINDING IN THE CHEST. Stroke Is this a Stroke Patient?: No Acute Heart Failure - Is this a Heart Failure Patient?: No
== END 2019-07-26 15:08 | disposition home health service (06) | DRG 190 ==
LOC: ER 13:57 → EH 17:06 → 4W 20:00
PROVIDERS: ADMIT Hospitalist; ATTEND Hospitalist
PROC: 5A09457 Assistance with Respiratory Ventilation, 24-96 Consecutive Hours, Continuous Positive Airway Pressure (ICD-10-PCS; principal; 2019-07-22)
PROC: 3E02340 Introduction of Influenza Vaccine into Muscle, Percutaneous Approach (ICD-10-PCS; 2019-07-26)
DX: J44.1 Chronic obstructive pulmonary disease with (acute) exacerbation (principal); J96.21 Acute and chronic respiratory failure with hypoxia; J96.22 Acute and chronic respiratory failure with hypercapnia; I25.10 Atherosclerotic heart disease of native coronary artery without angina pectoris; E78.5 Hyperlipidemia, unspecified; F32.9 Major depressive disorder, single episode, unspecified; K59.00 Constipation, unspecified; J44.0 Chronic obstructive pulmonary disease with (acute) lower respiratory infection; E78.00 Pure hypercholesterolemia, unspecified; D75.1 Secondary polycythemia; J20.9 Acute bronchitis, unspecified; F10.20 Alcohol dependence, uncomplicated; Z60.2 Problems related to living alone; Z66 Do not resuscitate; I25.2 Old myocardial infarction; Z23 Encounter for immunization; Z95.5 Presence of coronary angioplasty implant and graft; Z87.891 Personal history of nicotine dependence
CPT/HCPCS: 36415; 71045; 80048; 80053; 81001; 82803; 83735; 83880; 84484; 85025; 87040; 90686; 93005; 93010; 94640; 94660; 96374; 99291; J0456; J1650; J2920; J2930; J3490; J7030; J7060; J7620; J7626; S0028

== ENCOUNTER 2019-12-10 01:00 | Observation (INO) | payer MEDICARE, OTHER ==
--- NOTE | 2019-12-10 01:32 | ER Document Report ---
ED Respiratory Problem - General Chief Complaint: Breathing Difficulty Stated Complaint: DIFFICULTY BREATHING Time Seen by Provider: 12/10/19 01:23 Mode of Arrival: Medic Information source: Patient Notes: 74-year-old male with history of COPD presents to the emergency department with worsening shortness of breath over the last 2 to 3 days. Patient reports he uses 2 L of oxygen at home. He states over the last few days he is tried increasing this to 3 L. He states that he feels so short of breath he may pass out. Patient denies any cough, congestion, chest pain or fever. Denies any recent travel or exposure to any known COVID-19 patients. TRAVEL OUTSIDE OF THE [place] IN LAST 30 DAYS: No - Related Data Allergies/Adverse Reactions: No Known Allergies Allergy (Verified 05/30/18 11:16) Past Medical History - General Information source: Patient - Social History Smoking Status: Never Smoker Frequency of alcohol use: None Drug Abuse: None Family History: CAD, CVA - Ruptured cerebral aneurysm, Other - Alcoholism - Past Medical History Cardiac Medical History: Reports: Hx Heart Attack - 2005, 2016, Hx Hypercholesterolemia Denies: Hx Hypertension Pulmonary Medical History: Reports: Hx Asthma, Hx COPD Neurological Medical History: Denies: Hx Cerebrovascular Accident, Hx Seizures Renal/ Medical History: Denies: Hx Peritoneal Dialysis GI Medical History: Denies: Hx Hepatitis, Hx Hiatal Hernia, Hx Ulcer Infectious Medical History: Denies: Hx Hepatitis Past Surgical History: Reports: Hx Cardiac Surgery - cath and 2 stents, Hx Cholecystectomy, Hx Orthopedic Surgery - right leg metal plate. Denies: Hx Open Heart Surgery, Hx Pacemaker - Immunizations Hx Diphtheria, Pertussis, Tetanus Vaccination: No - unknown Review of Systems - Review of Systems Respiratory: Short of breath -: Yes All other systems reviewed and negative Physical Exam - Vital signs Vitals: Resp Pulse Ox 18 93 12/10/19 01:13 12/10/19 01:13 - Notes Notes: PHYSICAL EXAMINATION: GENERAL: Well-appearing, well-nourished. HEAD: Atraumatic, normocephalic. EYES: Pupils equal round and reactive to light, extraocular movements intact, sclera anicteric, conjunctiva are normal. ENT: Nares patent, oropharynx clear without exudates. Moist mucous membranes. NECK: Normal range of motion, supple without lymphadenopathy LUNGS: Expiratory wheezes noted bilaterally, increased work of breathing. HEART: Regular rate and rhythm without murmurs ABDOMEN: Soft, nontender, nondistended abdomen. No guarding, no rebound. No masses appreciated. Musculoskeletal: Normal range of motion, no pitting or edema. No cyanosis. NEUROLOGICAL: Cranial nerves grossly intact. Normal sensory, motor exams PSYCH: Normal mood, normal affect. SKIN: Warm, Dry, normal turgor, no rashes or lesions noted. Course - Re-evaluation Re-evalutation: Laboratory 12/10/19 12/10/19 12/10/19 01:37 01:37 01:37 WBC 10.7 H RBC 5.71 H Hgb 17.0 Hct 50.0 MCV 88 MCH 29.7 MCHC 33.9 RDW 14.9 H Plt Count 294 Lymph % (Auto) 16.9 [place] % (Auto) 6.2 Eos % (Auto) 4.3 Baso % (Auto) 0.8 Absolute Neuts (auto) 7.7 Absolute Lymphs (auto) 1.8 Absolute Monos (auto) 0.7 Absolute Eos (auto) 0.5 Absolute Basos (auto) 0.1 Seg Neutrophils % 71.8 VBG pH VBG pCO2 VBG HCO3 VBG Base Excess Sodium 138.2 Potassium 4.9 Chloride 104 Carbon Dioxide 26 Anion Gap 8 BUN 14 Creatinine 0.80 Est GFR ( Amer) > 60 Est GFR (MDRD) Non-Af > 60 Glucose 152 H Calcium 9.6 Total Bilirubin 0.8 Direct Bilirubin 0.0 Neonat Total Bilirubin Not Reportable Neonat Direct Bilirubin Not Reportable Neonat Indirect Bili Not Reportable AST 47 ALT 32 Alkaline Phosphatase 96 NT-Pro-B Natriuret Pep 4440 H Total Protein 7.2 Albumin 4.2 Urine Color Urine Appearance Urine pH Ur Specific [place] Urine Protein Urine Glucose (UA) Urine Ketones Urine Blood Urine Nitrite Urine Bilirubin Urine Urobilinogen Ur Leukocyte Esterase Urine WBC (Auto) U Hyaline Cast (Auto) Urine Mucus (Auto) Urine Ascorbic Acid 12/10/19 12/10/19 02:36 05:12 WBC RBC Hgb Hct MCV MCH MCHC RDW Plt Count Lymph % (Auto) [place] % (Auto) Eos % (Auto) Baso % (Auto) Absolute Neuts (auto) Absolute Lymphs (auto) Absolute Monos (auto) Absolute Eos (auto) Absolute Basos (auto) Seg Neutrophils % VBG pH 7.38 VBG pCO2 41.2 VBG HCO3 23.6 VBG Base Excess -1.5 Sodium Potassium Chloride Carbon Dioxide Anion Gap BUN Creatinine Est GFR ( Amer) Est GFR (MDRD) Non-Af Glucose Calcium Total Bilirubin Direct Bilirubin Neonat Total Bilirubin Neonat Direct Bilirubin Neonat Indirect Bili AST ALT Alkaline Phosphatase NT-Pro-B Natriuret Pep Total Protein Albumin Urine Color YELLOW Urine Appearance CLEAR Urine pH 5.0 Ur Specific [place] 1.021 Urine Protein NEGATIVE Urine Glucose (UA) NEGATIVE Urine Ketones NEGATIVE Urine Blood NEGATIVE Urine Nitrite NEGATIVE Urine Bilirubin NEGATIVE Urine Urobilinogen 2.0 H Ur Leukocyte Esterase NEGATIVE Urine WBC (Auto) 2 U Hyaline Cast (Auto) 1 Urine Mucus (Auto) RARE Urine Ascorbic Acid NEGATIVE Ambulated patient, he became very tachypneic and stated that he felt like he was going to pass out. Called and spoke with hospitalist, Dr. Castro who graciously agrees to accept the patient for admission. Patient's lung sounds have improved after administration of breathing treatments, Solu-Medrol and magnesium. - Vital Signs Vital signs: Temp Pulse Resp BP Pulse Ox 97.8 F 18 106/81 92 12/10/19 01:18 12/10/19 06:00 12/10/19 05:01 12/10/19 06:00 - Laboratory Result Diagrams: 12/10/19 01:37 12/10/19 01:37 Laboratory results interpreted by me: 12/10/19 12/10/19 12/10/19 01:37 01:37 01:37 WBC 10.7 H RBC 5.71 H RDW 14.9 H Glucose 152 H NT-Pro-B Natriuret Pep 4440 H Urine Urobilinogen 12/10/19 05:12 WBC RBC RDW Glucose NT-Pro-B Natriuret Pep Urine Urobilinogen 2.0 H Discharge - Discharge Clinical Impression: Shortness of breath, Tachypnea, COPD exacerbation Condition: Stable Disposition: ADMITTED INPATIENT Admitting Provider: Gloria (Hospitalist) Unit Admitted: Medical Floor
[2019-12-10] MEDS ORDERED: MAGNESIUM SULFATE/D5W 1 GM/100 ML RTUPB IV ONE ×3 (01:47→03:34)
[2019-12-10] MEDS ORDERED: NORMAL SALINE 500 ML IV ONE (01:47)
[2019-12-10 01:57] LABS: ABSOLUTE BASOPHILS # (AUTO) 0.1 10^3/uL (0.0-0.2); ABSOLUTE EOSINOPHILS # (AUTO) 0.5 10^3/uL (0.0-0.6); ABSOLUTE LYMPHOCYTES (AUTO) 1.8 10^3/uL (0.5-4.7); ABSOLUTE MONOCYTES (AUTO) 0.7 10^3/uL (0.1-1.4); ABSOLUTE NEUT (AUTO) 7.7 10^3/uL (1.7-8.2); BASOPHILS % (AUTO) 0.8 % (0-2); EOSINOPHILS % (AUTO) 4.3 % (0-6); LYMPHOCYTES % (AUTO) 16.9 % (13-45); MEAN CORPUSCULAR HEMOGLOBIN 29.7 pg (27.0-33.4); MEAN CORPUSCULAR HGB CONC 33.9 g/dL (32.0-36.0); MEAN CORPUSCULAR VOLUME 88 fl (80-97); MONOCYTES % (AUTO) 6.2 % (3-13); PLATELET COUNT 294 10^3/uL (150-450); RED BLOOD COUNT 5.71 10^6/uL (4.35-5.55); RED CELL DISTRIBUTION WIDTH 14.9 % (11.5-14.0); SEGMENTED NEUTROPHILS % (AUTO) 71.8 % (42-78); TOTAL CELLS COUNTED % (AUTO) 100 %; WHITE BLOOD COUNT 10.7 10^3/uL (4.0-10.5)
[2019-12-10 02:13] LABS: ALBUMIN 4.2 g/dL (3.5-5.0); ALKALINE PHOSPHATASE 96 U/L (38-126); ANION GAP 8 (5-19); ASPARTATE AMINO TRANSFERASE 47 U/L (17-59); BILIRUBIN,TOTAL 0.8 mg/dL (0.2-1.3); BLOOD UREA NITROGEN 14 mg/dL (7-20); CALCIUM 9.6 mg/dL (8.4-10.2); CARBON DIOXIDE 26 mmol/L (22-30); CHLORIDE 104 mmol/L (98-107); GLUCOSE 152 mg/dL (75-110); POTASSIUM 4.9 mmol/L (3.6-5.0); TOTAL PROTEIN 7.2 g/dL (6.3-8.2)
[2019-12-10] MEDS ORDERED: IPRATROPIUM/ALBUTEROL 0.5-2.5 MG/3 ML AMPUL NEB ONE (02:22)
[2019-12-10 02:48] LABS: VENOUS BLOOD BASE EXCESS -1.5 mmol/L; VENOUS BLOOD HCO3 23.6 mmol/L (20-32); VENOUS BLOOD PCO2 41.2 mmHg (35-63); VENOUS BLOOD PH 7.38 (7.30-7.42)
--- NOTE | 2019-12-10 03:03 | RADIOLOGY REPORT (SQ) ---
AP Portable chest: 12/10/2019 2:02 AM CDT History: 74-year old patient with dyspnea. Comparison: None available Findings: The cardiomediastinal silhouette is normal in size. No pneumothorax is seen. No acute airspace opacities are seen. No discrete pleural effusion is apparent. Atherosclerotic calcifications are seen at the aortic arch. Impression: No acute airspace opacities are seen.
[2019-12-10] MEDS ORDERED: ACETAMINOPHEN 325 MG TABLET PO PRN (05:35)
[2019-12-10] MEDS ORDERED: MORPHINE SULFATE 10 MG/ML INJ IV PRN (05:35)
[2019-12-10] MEDS ORDERED: GUAIFENESIN SYRP 200 MG/10 ML UDC PO PRN (05:35)
[2019-12-10] MEDS ORDERED: MAGNESIUM HYDROXIDE SUSP 30 ML UDCUP PO PRN (05:35)
[2019-12-10] MEDS ORDERED: HYDRALAZINE HCL INJ/PF 20 MG/1 ML SDV IV PRN (05:35)
[2019-12-10] MEDS ORDERED: MAG HYDROX/AL HYDROX/SIMETH SUSP 30 ML UDCUP PO PRN (05:35)
[2019-12-10] MEDS ORDERED: LORAZEPAM INJ 2 MG/1 ML VIAL IV PRN (05:35)
[2019-12-10] MEDS ORDERED: LEVALBUTEROL HCL NEB 0.63 MG/3 ML AMPUL NEB PRN (05:36)
[2019-12-10 06:08] LABS: APPEARANCE,URINE CLEAR; BILIRUBIN,URINE NEGATIVE (NEGATIVE); COLOR,URINE YELLOW; GLUCOSE, URINE NEGATIVE (NEGATIVE); KETONES,URINE NEGATIVE (NEGATIVE); LEUKOCYTE ESTERASE,URINE NEGATIVE (NEGATIVE); NITRITE,URINE NEGATIVE (NEGATIVE); PROTEIN,URINE NEGATIVE (NEGATIVE); URINE SPECIFIC GRAVITY 1.021
--- NOTE | 2019-12-10 06:43 | PDOC H&P ---
History of Present Illness Admission Date/PCP: 12/10/2019 05:20 Dr. Gamino Patient complains of: Dyspnea History of Present Illness: KASSIDY REDDY is a 74 year old male who presented to the emergency room with a 2-day history of dyspnea. Patient complains of progressively worsening dyspnea over the last 2 days accompanied by wheezing and worsened by exertion. He denies other associated or accompanying signs and symptoms. He admits numerous prior similar episodes related to his COPD. He has not identified any additional aggravating or ameliorating factors for his dyspnea. He admits treating himself by increasing his oxygen from 2 L/min to 3 L/min, for the last 24 hours, but this did not result in substantial improvement in his dyspnea. Since his method of treatment failed he decided to call EMS who found him to be in mild respiratory distress with O2 sat in the mid 80s on room air at home. He was given nebulizer treatments and Solu-Medrol in transit and he received additi onal nebulizer treatments and intravenous magnesium in the ER. He improved but was unable to ambulate 200 feet without severe dyspnea even though he was on 2 L oxygen per minute via nasal cannula. He was subsequently admitted to the hospital for further evaluation and treatment on observation status. Past Medical History Cardiac Medical History: Reports: Myocardial Infarction - 2005, 2016, Hyperlipidema Denies: Atrial Fibrillation, Congestive Heart Failure, Coronary Artery Disease, DVT, Hypertension, Peripheral Vascular Disease, Pulmonary Embolism Pulmonary Medical History: Reports: Chronic Obstructive Pulmonary Disease (COPD) Denies: Asthma EENT Medical History: Reports: Cataracts Denies: Ears - Hearing aids Neurological Medical History: Denies: Hemorrhagic CVA, Ischemic CVA, Seizures Endocrine Medical History: Denies: Diabetes Mellitus Type 1, Diabetes Mellitus Type 2, Hyperthyroidism, Hypothyroidism Renal/ Medical History: Denies: Chronic Kidney Disease, Nephrolithiasis Malignancy Medical History: Reports: None GI Medical History: Denies: Cirrhosis, Crohn's Disease, Hepatitis, Hiatal Hernia, Peptic Ulcer Disease, Ulcerative Colitis Musculoskeltal Medical History: Denies: Arthritis, Gout Skin Medical History: Denies: Eczema, Psoriasis Psychiatric Medical History: Denies: Alcohol Dependency, Substance Abuse, Tobacco Dependency Traumatic Medical History: Reports: None Hematology: Denies: Anemia, Bleeding Tendencies Infectious Medical History: Reports: None Past Surgical History Past Surgical History: Reports: Cholecystectomy, Orthopedic Surgery - right leg metal plate fracture repair, Other - Cataract surgery bilateral Social History Information Source: Patient Lives with: Family Smoking Status: Former Smoker Electronic Cigarette use?: No Frequency of Alcohol Use: None Hx Recreational Drug Use: No Drugs: None Hx Prescription Drug Abuse: No - Advance Directive Resuscitation Status: Full Code Surrogate healthcare decision maker:: Jadiel Flores Family History Family History: CAD, CVA - Ruptured cerebral aneurysm, Other - Alcoholism Parental Family History Reviewed: Yes Children Family History Reviewed: No Sibling(s) Family History Reviewed.: Yes Medication/Allergy Home Medications: Albuterol Sulfate [Proair HFA Inhalation Aerosol 8.5 gm MDI] 2 puff IH Q4HP PRN 07/22/19 Atorvastatin Calcium [Lipitor 80 mg Tablet] 80 mg PO QHS 07/22/19 Fluticasone/Umeclidin/Vilanter [Trelegy 100-62.5-25 Mcg Ellipta 14 Dose/Dpi] 1 puff IH DAILY 07/22/19 Ipratropium/Albuterol Sulfate [Duoneb 3 ml Ampul] 1 vial NEB Q6 07/22/19 Metoprolol Succinate [Toprol Xl 50 mg Tab.sr] 50 mg PO DAILY 07/22/19 Tiotropium Br/Olodaterol HCl [Stiolto Respimat Inhal [place]] 2 puff IH DAILY 07/22/19 Aspirin [Ecotrin 81 mg EC Tablet] 81 mg PO QHS #30 tabec 07/26/19 Prednisone [Deltasone 20 mg Tablet] 20 mg PO BID 5 Days #10 tablet 07/26/19 Allergies/Adverse Reactions: No Known Allergies Allergy (Verified 05/30/18 11:16) Review of Systems Constitutional: ABSENT: chills, fever(s) Eyes: ABSENT: visual disturbances, other - Eye pain Ears: ABSENT: hearing changes, other - Ear pain Nose, Mouth, and Throat: ABSENT: headache(s), sore throat Cardiovascular: PRESENT: dyspnea on exertion. ABSENT: chest pain, edema, orthropnea, palpitations Respiratory: PRESENT: dyspnea, other - Wheezing. ABSENT: cough, sputum Gastrointestinal: ABSENT: abdominal pain, constipation, diarrhea, nausea, vomiting Genitourinary: ABSENT: dysuria, hematuria Musculoskeletal: ABSENT: back pain, joint swelling Integumentary: ABSENT: pruritus, rash Neurological: ABSENT: confusion, convulsions, focal weakness, memory loss, syncope Psychiatric: ABSENT: anxiety, depression Endocrine: ABSENT: cold intolerance, heat intolerance Hematologic/Lymphatic: ABSENT: easy bleeding, easy bruising Allergic/Immunologic: ABSENT: seasonal rhinorrhea Physical Exam Vital Signs: Temp Pulse Resp BP Pulse Ox 97.8 F 19 101/81 96 12/10/19 01:18 12/10/19 03:40 12/10/19 03:40 12/10/19 03:40 Intake & Output 12/08/19 12/09/19 12/10/19 23:59 23:59 23:59 Intake Total 700 Balance 700 Weight 97.4 kg General appearance: PRESENT: no acute distress, cooperative Head exam: PRESENT: atraumatic, normocephalic Eye exam: PRESENT: conjunctiva pink. ABSENT: conjunctival injection, scleral icterus Ear exam: PRESENT: normal external ear exam. ABSENT: bleeding, drainage Mouth exam: PRESENT: dry mucosa, neck supple Neck exam: ABSENT: thyromegaly, tracheal deviation Respiratory exam: PRESENT: decreased breath sounds - Lightly decreased breath sounds noted throughout all bl[place], prolonged expiratory phas - Moderately prolonged expiratory phase noted throughout all [place], symmetrical, wheezes - Expiratory wheezes noted throughout all [place] Cardiovascular exam: PRESENT: RRR. ABSENT: clicks, gallop, rubs Pulses: PRESENT: normal radial pulses, normal dorsalis pedis pul Vascular exam: PRESENT: normal capillary refill. ABSENT: pallor GI/Abdominal exam: PRESENT: normal bowel sounds, soft. ABSENT: tenderness Rectal exam: PRESENT: deferred Extremities exam: ABSENT: joint swelling, pedal edema Musculoskeletal exam: ABSENT: deformity, dislocation Neurological exam: PRESENT: alert, oriented to person, oriented to place, oriented to time, oriented to situation, CN II-XII grossly intact. ABSENT: motor sensory deficit Psychiatric exam: PRESENT: appropriate affect, normal mood Skin exam: PRESENT: dry, intact, warm. ABSENT: jaundice, rash, urticaria Results Laboratory Results: 12/10/19 01:37 12/10/19 01:37 12/10/19 12/10/19 12/10/19 01:37 01:37 02:36 WBC 10.7 H RBC 5.71 H Hgb 17.0 Hct 50.0 MCV 88 MCH 29.7 MCHC 33.9 RDW 14.9 H Plt Count 294 Seg Neutrophils % 71.8 VBG pH 7.38 VBG pCO2 41.2 VBG HCO3 23.6 VBG Base Excess -1.5 Sodium 138.2 Potassium 4.9 Chloride 104 Carbon Dioxide 26 Anion Gap 8 BUN 14 Creatinine 0.80 Est GFR ( Amer) > 60 Glucose 152 H Calcium 9.6 Total Bilirubin 0.8 AST 47 Alkaline Phosphatase 96 Total Protein 7.2 Albumin 4.2 12/10/19 01:37 NT-Pro-B Natriuret Pep 4440 H Assessment and Plan - Diagnosis (1) Acute exacerbation of chronic obstructive pulmonary disease (COPD) Is this a current diagnosis for this admission?: Yes (2) Acute and chronic respiratory failure with hypoxia Is this a current diagnosis for this admission?: Yes (3) Coronary artery disease Qualifiers: Coronary Disease-Associated Artery/Lesion type: [place] artery [place] vs. transplanted heart: [place] heart Associated angina: without angina Qualified Code(s): I25.10 - Atherosclerotic heart disease of [place] coronary artery without angina pectoris Is this a current diagnosis for this admission?: Yes (4) Hypercholesterolemia Is this a current diagnosis for this admission?: Yes - Plan Summary Summary: Patient is admitted to observation status on the medical floor. He received routine supportive and symptomatic cares. He will be treated with a short course of IV Solu-Medrol utilizing 40 mg every 6 hours x3 doses. He will receive an aggressive pulmonary toilet utilizing nebulized Xopenex, Atrovent and Pulmicort. He will receive oral antibiotics utilizing Levaquin 750 mg daily x4 days. He will receive supplemental oxygen via nasal cannula as required to maintain an O2 sat between 88 and 92%. He will be continued on a cardiac diet. His usual medications will be resumed when his medication list has been verified and reconciled. He will use Ativan 1 mg IV every 4 hours as needed for restlessness or anxiety. He will use morphine sulfate 2 to 4 mg IV every 2 hours as needed for pain. CBCs, metabolic profiles, magnesium levels and any additional radiographic or laboratory evaluations will be ordered as appro priate. - Time Time Spent with patient: 15-24 minutes Medications reviewed and adjusted accordingly: Yes Anticipated discharge: Home with Homehealth - Inpatient Certification Medical Necessity: Need Close Monitoring Due to Risk of Patient Decompensation, Need for Nebulizer Therapy and Monitoring of Response, Risk of Complication if Not Cared For in Hospital
[2019-12-10] MEDS: HEPARIN SOD (PORCINE) 5,000 UNIT/ML 1 ML VIAL SUBCUT SCH ×3 (06:57→21:02)
--- NOTE | 2019-12-10 07:23 | EKG REPORT ---
SEVERITY:- ABNORMAL ECG - SINUS TACHYCARDIA CONSIDER ANTEROSEPTAL INFARCT : Confirmed by: Loyd Villegas MD 10-Dec-2019 07:23:18
[2019-12-10] MEDS: LEVALBUTEROL HCL NEB 1.25 MG/3 ML AMPUL NEB SCH ×2 (09:12→16:07)
[2019-12-10] MEDS: BUDESONIDE NEB 0.5 MG/2 ML AMPUL NEB SCH ×2 (09:12→19:39)
[2019-12-10] MEDS: METHYLPREDNISOLONE INJ 40 MG/1 ML SDV IV SCH ×3 (10:13→21:01)
[2019-12-10] MEDS: DOCUSATE SODIUM 100 MG CAPSULE PO SCH ×2 (10:14→17:28)
[2019-12-10] MEDS: FAMOTIDINE 20 MG TABLET PO SCH ×2 (10:14→21:02)
--- NOTE | 2019-12-10 10:54 | Progress Note ---
Provider Note Provider Note: 12/10/2019 brief note patient was admitted after midnight. Patient states he has been trying to get some steroids since November 13 and has been getting worse with his COPD since then. More short of breath, more coughing. Temperature is 97.8 on admission his pulse was 117 Blood pressure approximately 106/80 respirations now are about 16 on admission they were 22 Labs appeared grossly stable Chest x-ray shows no acute cardiopulmonary disease In July 2019 his BNP was 33 now it is 4440 Patient has no evidence of peripheral edema or crackles Patient on Pulmicort nebs Xopenex nebs Solu-Medrol 40 mg IV every 6 hours Patient did receive 3 bags of magnesium in the ER Will repeat labs in the morning Patient is able to talk to me in full sentences
[2019-12-10] MEDS: FUROSEMIDE 20 MG TABLET PO SCH (17:23)
[2019-12-11] MEDS: LEVALBUTEROL HCL NEB 1.25 MG/3 ML AMPUL NEB SCH ×2 (00:59→08:38)
[2019-12-11] MEDS: HEPARIN SOD (PORCINE) 5,000 UNIT/ML 1 ML VIAL SUBCUT SCH ×3 (05:54→21:47)
[2019-12-11 06:05] LABS: HEMATOCRIT 45.6 % (37.9-51.0); HEMOGLOBIN 15.4 g/dL (13.5-17.0); MEAN CORPUSCULAR HEMOGLOBIN 29.8 pg (27.0-33.4); MEAN CORPUSCULAR HGB CONC 33.8 g/dL (32.0-36.0); MEAN CORPUSCULAR VOLUME 88 fl (80-97); PLATELET COUNT 300 10^3/uL (150-450); RED BLOOD COUNT 5.18 10^6/uL (4.35-5.55); RED CELL DISTRIBUTION WIDTH 14.8 % (11.5-14.0); WHITE BLOOD COUNT 18.2 10^3/uL (4.0-10.5)
[2019-12-11 06:30] LABS: ANION GAP 9 (5-19); BLOOD UREA NITROGEN 18 mg/dL (7-20); CALCIUM 9.4 mg/dL (8.4-10.2); CARBON DIOXIDE 25 mmol/L (22-30); CHLORIDE 102 mmol/L (98-107); GLUCOSE 145 mg/dL (75-110); POTASSIUM 4.4 mmol/L (3.6-5.0)
[2019-12-11] MEDS: BUDESONIDE NEB 0.5 MG/2 ML AMPUL NEB SCH ×2 (08:38→19:38)
[2019-12-11] MEDS: FUROSEMIDE 20 MG TABLET PO SCH ×2 (09:11→17:58)
[2019-12-11] MEDS: DOCUSATE SODIUM 100 MG CAPSULE PO SCH ×2 (09:11→17:58)
[2019-12-11] MEDS: FAMOTIDINE 20 MG TABLET PO SCH ×2 (09:11→21:47)
--- NOTE | 2019-12-11 11:13 | PDOC PROGRESS REPORT ---
Subjective Progress Note for:: 12/11/19 Reason For Visit: ACUTE EXACERBATION OF COPD 12/11/2019 Patient admitted on 12/10/2023 for COPD exacerbation, shortness of breath, home oxygen dependency, Physical Exam Vital Signs: Temp Pulse Resp BP Pulse Ox 97.4 F 81 16 123/77 96 12/11/19 07:15 12/11/19 08:38 12/11/19 08:38 12/11/19 07:15 12/11/19 08:38 Intake & Output 12/10/19 12/11/19 12/12/19 06:59 06:59 06:59 Intake Total 700 1060 Balance 700 1060 Weight 86.7 kg 88.2 kg General appearance: PRESENT: mild distress Respiratory exam: PRESENT: decreased breath sounds, rales, wheezes Cardiovascular exam: PRESENT: RRR. ABSENT: diastolic murmur, rubs, systolic murmur Neurological exam: PRESENT: alert, awake, oriented to person, oriented to place, oriented to time, oriented to situation, CN II-XII grossly intact. ABSENT: motor sensory deficit Psychiatric exam: PRESENT: appropriate affect, normal mood. ABSENT: homicidal ideation, suicidal ideation Results Laboratory Results: 12/11/19 05:06 12/11/19 05:06 12/11/19 12/11/19 05:06 05:06 WBC 18.2 H RBC 5.18 Hgb 15.4 Hct 45.6 MCV 88 MCH 29.8 MCHC 33.8 RDW 14.8 H Plt Count 300 Sodium 136.3 L Potassium 4.4 Chloride 102 Carbon Dioxide 25 Anion Gap 9 BUN 18 Creatinine 0.85 Est GFR ( Amer) > 60 Glucose 145 H Calcium 9.4 Magnesium 2.2 12/10/19 01:37 NT-Pro-B Natriuret Pep 4440 H Assessment and Plan - Diagnosis (1) Dependence on supplemental oxygen Is this a current diagnosis for this admission?: Yes (2) Acute exacerbation of chronic obstructive pulmonary disease (COPD) Is this a current diagnosis for this admission?: Yes (3) Shortness of breath Is this a current diagnosis for this admission?: Yes (4) Acute and chronic respiratory failure with hypoxia Is this a current diagnosis for this admission?: Yes (5) Coronary artery disease Qualifiers: Coronary Disease-Associated Artery/Lesion type: [place] artery [place] vs. t ransplanted heart: [place] heart Associated angina: without angina Qualified Code(s): I25.10 - Atherosclerotic heart disease of [place] coronary artery without angina pectoris Is this a current diagnosis for this admission?: Yes - Plan Summary Summary: Patient is admitted to observation status on the medical floor. He received routine supportive and symptomatic cares. He will be treated with a short course of IV Solu-Medrol utilizing 40 mg every 6 hours x3 doses. He will receive an aggressive pulmonary toilet utilizing nebulized Xopenex, Atrovent and Pulmicort. He will receive oral antibiotics utilizing Levaquin 750 mg daily x4 days. He will receive supplemental oxygen via nasal cannula as required to maintain an O2 sat between 88 and 92%. He will be continued on a cardiac diet. His usual medications will be resumed when his medication list has been verified and reconciled. He will use Ativan 1 mg IV every 4 hours as needed for restlessness or anxiety. He will use morphine sulfate 2 to 4 mg IV every 2 hours as needed for pain. CBCs, metabolic profiles, magnesium levels and any additional radiographic or laboratory evaluations will be ordered as appropriate. 12/11/2019 Please see provider note dictated yesterday. Patient remains afebrile 97.4, pulse is 85 ,blood pressure 123/77, respirations anywhere from 24 down to 16 Saturations are running in the mid 90s on 3 L nasal cannula. Patient uses 2 L of oxygen at home White count is gone up to 18,200 but patient is on Solu-Medrol BNP yesterday was 4440 Chest x-ray yesterday on admission showed no acute cardiopulmonary disease Patient is on no antibiotics as there is no clinical indication Patient is on Lasix 20 mg twice daily p.o. and was on no Lasix prior to coming in Patient was on Solu-Medrol 40 mg IV every 6 hours until yesterday evening he got a total of 3 doses I will continue this but at every 8 hours AlSo I will increase his Xopenex to 1.25 mg I explained all this to the patient he seems satisfied - Time Time Spent with patient: 25-34 minutes
[2019-12-11] MEDS: LEVALBUTEROL HCL NEB 1.25 MG/3 ML AMPUL NEB PRN ×3 (12:42→19:38)
[2019-12-11] MEDS: METHYLPREDNISOLONE INJ 40 MG/1 ML SDV IV SCH ×3 (12:48→21:46)
[2019-12-11] MEDS: ZOLPIDEM TARTRATE 5 MG TABLET PO PRN (21:56)
[2019-12-12] MEDS: METHYLPREDNISOLONE INJ 40 MG/1 ML SDV IV SCH ×2 (05:44→21:55)
[2019-12-12] MEDS: HEPARIN SOD (PORCINE) 5,000 UNIT/ML 1 ML VIAL SUBCUT SCH ×3 (05:44→21:55)
[2019-12-12] MEDS: BUDESONIDE NEB 0.5 MG/2 ML AMPUL NEB SCH ×2 (08:16→19:47)
[2019-12-12] MEDS: LEVALBUTEROL HCL NEB 1.25 MG/3 ML AMPUL NEB PRN ×3 (08:16→19:49)
[2019-12-12] MEDS: DOCUSATE SODIUM 100 MG CAPSULE PO SCH ×2 (09:26→18:32)
[2019-12-12] MEDS: FUROSEMIDE 20 MG TABLET PO SCH ×2 (09:26→18:32)
[2019-12-12] MEDS: FAMOTIDINE 20 MG TABLET PO SCH ×2 (09:26→21:55)
--- NOTE | 2019-12-12 10:28 | PDOC PROGRESS REPORT ---
Subjective Progress Note for:: 12/12/19 Reason For Visit: ACUTE EXACERBATION OF COPD 12/12/2019 COPD exacerbation, home oxygen dependency, shortness of breath Physical Exam Vital Signs: Temp Pulse Resp BP Pulse Ox 98.6 F 88 20 132/77 H 95 12/12/19 07:30 12/12/19 07:30 12/12/19 07:30 12/12/19 07:30 12/12/19 07:30 Intake & Output 12/11/19 12/12/19 12/13/19 06:59 06:59 06:59 Intake Total 1060 1180 Output Total 1500 Balance 1060 -320 Weight 88.2 kg 87.9 kg General appearance: PRESENT: mild distress Respiratory exam: PRESENT: wheezes - Expiratory Cardiovascular exam: PRESENT: RRR. ABSENT: diastolic murmur, rubs, systolic murmur Neurological exam: PRESENT: alert, awake, oriented to person, oriented to place, oriented to time, oriented to situation, CN II-XII grossly intact. ABSENT: motor sensory deficit Psychiatric exam: PRESENT: appropriate affect, normal mood, other - Patient is in good spirits, says he had a good night sleep. ABSENT: homicidal ideation, suicidal ideation Results Laboratory Results: 12/11/19 05:06 12/11/19 05:06 12/10/19 01:37 NT-Pro-B Natriuret Pep 4440 H Assessment and Plan - Diagnosis (1) Dependence on supplemental oxygen Is this a current diagnosis for this admission?: Yes (2) Acute exacerbation of chronic obstructive pulmonary disease (COPD) Is this a current diagnosis for this admission?: Yes (3) Shortness of breath Is this a current diagnosis for this admission?: Yes (4) Acute and chronic respiratory failure with hypoxia Is this a current diagnosis for this admission?: Yes (5) Coronary artery disease Qualifiers: Coronary Disease-Associated Artery/Lesion type: [place] artery [place] vs. transplanted heart: [place] heart Associated angina: without angina Qualified Code(s): I25.10 - Atherosclerotic heart disease of [place] coronary artery without angina pectoris Is this a current diagnosis for this admission?: Yes - Plan Summary Summary: Patient is admitted to observation status on the medical floor. He received routine supportive and symptomatic cares. He will be treated with a short course of IV Solu-Medrol utilizing 40 mg every 6 hours x3 doses. He will receive an aggressive pulmonary toilet utilizing nebulized Xopenex, Atrovent and Pulmicort. He will receive oral antibiotics utilizing Levaquin 750 mg daily x4 days. He will receive supplemental oxygen via nasal cannula as required to maintain an O2 sat between 88 and 92%. He will be continued on a cardiac diet. His usual medications will be resumed when his medication list has been verified and reconciled. He will use Ativan 1 mg IV every 4 hours as needed for restlessness or anxiety. He will use morphine sulfate 2 to 4 mg IV every 2 hours as needed for pain. CBCs, metabolic profiles, magnesium levels and any additional radiographic or laboratory evaluations will be ordered as appropriate. 12/11/2019 Please see provider note dictated yesterday. Patient remains afebrile 97.4, pulse is 85 ,blood pressure 123/77, respirations anywhere from 24 down to 16 Saturations are running in the mid 90s on 3 L nasal cannula. Patient uses 2 L of oxygen at home White count is gone up to 18,200 but patient is on Solu-Medrol BNP yesterday was 4440 Chest x-ray yesterday on admission showed no acute cardiopulmonary disease Patient is on no antibiotics as there is no clinical indication Patient is on Lasix 20 mg twice daily p.o. and was on no Lasix prior to coming in Patient was on Solu-Medrol 40 mg IV every 6 hours until yesterday evening he got a total of 3 doses I will continue this but at every 8 hours AlSo I will increase his Xopenex to 1.25 mg I explained all this to the patient he seems satisfied 12/12/2019 Temperature 97.7 pulse between 87 and 98 blood pressure 106/58 Respirations are much lower between 16 and 20. Patient's white count is stable at 18,000 and he is on steroids. I will cut his Solu-Medrol back today to every 12 hours instead of every 8 Patient appears to be ready for discharge tomorrow Patient states he is less short of breath and had a good night's rest Will DC patient home on steroids as well as Ambien 5 mg at bedtime as needed - Time Time Spent with patient: 15-24 minutes
[2019-12-12] MEDS: POLYETHYLENE GLYCOL 3350 POWDER 17 GM/1 PACKET PO SCH (11:09)
[2019-12-12] MEDS: ZOLPIDEM TARTRATE 5 MG TABLET PO PRN (22:02)
[2019-12-13] MEDS: HEPARIN SOD (PORCINE) 5,000 UNIT/ML 1 ML VIAL SUBCUT SCH (06:49)
[2019-12-13] MEDS: LEVALBUTEROL HCL NEB 1.25 MG/3 ML AMPUL NEB PRN ×2 (07:40→12:15)
[2019-12-13] MEDS: BUDESONIDE NEB 0.5 MG/2 ML AMPUL NEB SCH (07:41)
[2019-12-13] MEDS: METHYLPREDNISOLONE INJ 40 MG/1 ML SDV IV SCH (10:01)
[2019-12-13] MEDS: FUROSEMIDE 20 MG TABLET PO SCH (10:01)
[2019-12-13] MEDS: FAMOTIDINE 20 MG TABLET PO SCH (10:01)
[2019-12-13] MEDS: DOCUSATE SODIUM 100 MG CAPSULE PO SCH (10:01)
[2019-12-13] MEDS: POLYETHYLENE GLYCOL 3350 POWDER 17 GM/1 PACKET PO SCH (10:02)
[2019-12-13 11:09] VITALS: BP 136/80
--- NOTE | 2019-12-13 12:24 | PDOC DISCHARGE SUMMARY ---
Impression - Admit/DC Date/PCP Admission Date/Primary Care Provider: 12/10/19 06:05 Discharge Date: 12/13/19 - Discharge Diagnosis (1) Dependence on supplemental oxygen Is this a current diagnosis for this admission?: Yes (2) Acute exacerbation of chronic obstructive pulmonary disease (COPD) Is this a current diagnosis for this admission?: Yes (3) Shortness of breath Is this a current diagnosis for this admission?: Yes (4) Acute and chronic respiratory failure with hypoxia Is this a current diagnosis for this admission?: Yes (5) Coronary artery disease Is this a current diagnosis for this admission?: Yes - Assessment Summary: Patient is admitted to observation status on the medical floor. He received routine supportive and symptomatic cares. He will be treated with a short course of IV Solu-Medrol utilizing 40 mg every 6 hours x3 doses. He will receive an aggressive pulmonary toilet utilizing nebulized Xopenex, Atrovent and Pulmicort. He will receive oral antibiotics utilizing Levaquin 750 mg daily x4 days. He will receive supplemental oxygen via nasal cannula as required to maintain an O2 sat between 88 and 92%. He will be continued on a cardiac diet. His usual medications will be resumed when his medication list has been verified and reconciled. He will use Ativan 1 mg IV every 4 hours as needed for restlessness or anxiety. He will use morphine sulfate 2 to 4 mg IV every 2 hours as needed for pain. CBCs, metabolic profiles, magnesium levels and any additional radiographic or laboratory evaluations will be ordered as appropriate. 12/11/2019 Please see provider note dictated yesterday. Patient remains afebrile 97.4, pulse is 85 ,blood pressure 123/77, respirations anywhere from 24 down to 16 Saturations are running in the mid 90s on 3 L nasal cannula. Patient uses 2 L of oxygen at home White count is gone up to 18,200 but patient is on Solu-Medrol BNP yesterday was 4440 Chest x-ray yesterday on admission showed no acute cardiopulmonary disease Patient is on no antibiotics as there is no clinical indication Patient is on Lasix 20 mg twice daily p.o. and was on no Lasix prior to coming in Patient was on Solu-Medrol 40 mg IV every 6 hours until yesterday evening he got a total of 3 doses I will continue this but at every 8 hours AlSo I will increase his Xopenex to 1.25 mg I explained all this to the patient he seems satisfied 12/12/2019 Temperature 97.7 pulse between 87 and 98 blood pressure 106/58 Respirations are much lower between 16 and 20. Patient's white count is stable at 18,000 and he is on steroids. I will cut his Solu-Medrol back today to every 12 hours instead of every 8 Patient appears to be ready for discharge tomorrow Patient states he is less short of breath and had a good night's rest Will DC patient home on steroids as well as Ambien 5 mg at bedtime as needed 12/13/2019 Patient is discharged home today in good condition. Temperature 97.4, pulse 91 blood pressure earlier this morning 104/66 later this morning 131/62 Oxygen saturation between 90 to 97% on 2 to 3 L nasal cannula. Patient uses 2 L at home Discharging patient home on a Medrol Dosepak also Xopenex nebulizer instead of albuterol. It would be nice if patient could see pulmonary within the next 5 to 7 days we are trying to set up this appointment Patient has been sleeping well at night so I am also discharging him home on his Ambien 5 mg Patient states he feels much better and is much less short of breath Plied 3-week worsening of his shortness of breath but much worse just in the last 2 days. Patient tells me he has been trying to get some steroids from his primary care doctor for the last 3 weeks but has been I am unable to do so. She also tells me that he is turned up his oxygen at home but it has not helped. Patient had a chest x-ray on admission that showed no acute cardiopulmonary disease Patient was admitted for basically a COPD exacerbation - Additional Information Resuscitation Status: Full Code Discharge Diet: As Tolerated Discharge Activity: Balance Activity w/Rest Referrals: OJRGE GAO FNP-C [ALLIED HEALTH PROFESSIONAL] - 12/24/19 3:30 pm Prescriptions: Zolpidem Tartrate [Ambien 5 mg Tablet] 5 mg PO HSP PRN 30 Days #30 tablet PRN Reason: Furosemide [Lasix 20 mg Tablet] 20 mg PO BID 30 Days #60 tablet Methylprednisolone [Medrol Dosepack (4 mg/Tab) 21 Tab/Dosepak] 4 mg PO ASDIR PRN #21 tab.ds.pk PRN Reason: Famotidine [Pepcid 20 mg Tablet] 20 mg PO Q12 30 Days #60 tablet Levalbuterol HCl [Xopenex Neb 1.25 mg/3 ml Ampul] 1.25 mg NEB RTQ4HP PRN 30 Days #120 vial.neb PRN Reason: Home Medications: Albuterol Sulfate [Proair HFA Inhalation Aerosol 8.5 gm MDI] 2 puff IH Q4HP PRN 07/22/19 Fluticasone/Umeclidin/Vilanter [Trelegy 100-62.5-25 Mcg Ellipta 14 Dose/Dpi] 1 puff IH DAILY 07/22/19 Aspirin [Ecotrin 81 mg EC Tablet] 81 mg PO QHS #30 tabec 07/26/19 Fluticasone Propionate [Flonase Nasal [place] 50 Mcg/[place] 16 gm] 1 spray NASL DAILY 12/10/19 Acetaminophen [Tylenol 325 mg Tablet] 650 mg PO Q4HP PRN tablet 12/13/19 Docusate Sodium [Colace 100 mg Capsule] 100 mg PO BID capsule 12/13/19 Famotidine [Pepcid 20 mg Tablet] 20 mg PO Q12 30 Days #60 tablet 12/13/19 Furosemide [Lasix 20 mg Tablet] 20 mg PO BID 30 Days #60 tablet 12/13/19 Levalbuterol HCl [Xopenex Neb 1.25 mg/3 ml Ampul] 1.25 mg NEB RTQ4HP PRN 30 Days #120 vial.neb 12/13/19 Mag Hydrox/Al Hydrox/Simeth [Maalox Plus Susp 30 Udcup] 30 ml PO Q6HP PRN udc 12/13/19 Magnesium Hydroxide [Milk of Magnesia 30 ml Udcup] 30 ml PO HSP PRN udc 12/13/19 Methylprednisolone [Medrol Dosepack (4 mg/Tab) 21 Tab/Dosepak] 4 mg PO ASDIR PRN #21 tab.ds.pk 12/13/19 Polyethylene Glycol 3350 [Miralax Powder 17 gm/Packet] 17 gm PO DAILY powd.pack 12/13/19 Zolpidem Tartrate [Ambien 5 mg Tablet] 5 mg PO HSP PRN 30 Days #30 tablet 12/13/19 History of Present Illiness History of Present Illness: KASSIDY REDDY is a 74 year old male Physical Exam Vital Signs: Temp Pulse Resp BP Pulse Ox 97.9 F 92 19 136/80 H 96 12/13/19 11:07 12/13/19 11:07 12/13/19 11:07 12/13/19 11:07 12/13/19 11:07 Intake & Output 12/12/19 12/13/19 12/14/19 06:59 06:59 06:59 Intake Total 1180 1920 240 Output Total 1500 2500 200 Balance -320 -580 40 Weight 87.9 kg 88.4 kg Results Laboratory Results: WBC 18.2 10^3/uL (4.0-10.5) H 12/11/19 05:06 RBC 5.18 10^6/uL (4.35-5.55) 12/11/19 05:06 Hgb 15.4 g/dL (13.5-17.0) 12/11/19 05:06 Hct 45.6 % (37.9-51.0) 12/11/19 05:06 MCV 88 fl (80-97) 12/11/19 05:06 MCH 29.8 pg (27.0-33.4) 12/11/19 05:06 MCHC 33.8 g/dL (32.0-36.0) 12/11/19 05:06 RDW 14.8 % (11.5-14.0) H 12/11/19 05:06 Plt Count 300 10^3/uL (150-450) 12/11/19 05:06 Lymph % (Auto) 16.9 % (13-45) 12/10/19 01:37 [place] % (Auto) 6.2 % (3-13) 12/10/19 01:37 Eos % (Auto) 4.3 % (0-6) 12/10/19 01:37 Baso % (Auto) 0.8 % (0-2) 12/10/19 01:37 Absolute Neuts (auto) 7.7 10^3/uL (1.7-8.2) 12/10/19 01:37 Absolute Lymphs (auto) 1.8 10^3/uL (0.5-4.7) 12/10/19 01:37 Absolute Monos (auto) 0.7 10^3/uL (0.1-1.4) 12/10/19 01:37 Absolute Eos (auto) 0.5 10^3/uL (0.0-0.6) 12/10/19 01:37 Absolute Basos (auto) 0.1 10^3/uL (0.0-0.2) 12/10/19 01:37 Seg Neutrophils % 71.8 % (42-78) 12/10/19 01:37 VBG pH 7.38 (7.30-7.42) 12/10/19 02:36 VBG pCO2 41.2 mmHg (35-63) 12/10/19 02:36 VBG HCO3 23.6 mmol/L (20-32) 12/10/19 02:36 VBG Base Excess -1.5 mmol/L 12/10/19 02:36 Sodium 136.3 mmol/L (137-145) L 12/11/19 05:06 Potassium 4.4 mmol/L (3.6-5.0) 12/11/19 05:06 Chloride 102 mmol/L (98-107) 12/11/19 05:06 Carbon Dioxide 25 mmol/L (22-30) 12/11/19 05:06 Anion Gap 9 (5-19) 12/11/19 05:06 BUN 18 mg/dL (7-20) 12/11/19 05:06 Creatinine 0.85 mg/dL (0.52-1.25) 12/11/19 05:06 Est GFR ( Amer) > 60 (>60) 12/11/19 05:06 Est GFR (MDRD) Non-Af > 60 (>60) 12/11/19 05:06 Glucose 145 mg/dL (75-110) H 12/11/19 05:06 Calcium 9.4 mg/dL (8.4-10.2) 12/11/19 05:06 Magnesium 2.2 mg/dL (1.6-2.3) 12/11/19 05:06 Total Bilirubin 0.8 mg/dL (0.2-1.3) 12/10/19 01:37 Direct Bilirubin 0.0 mg/dL (0.0-0.4) 12/10/19 01:37 Neonat Total Bilirubin Not Reportable 12/10/19 01:37 Neonat Direct Bilirubin Not Reportable 12/10/19 01:37 Neonat Indirect Bili Not Reportable 12/10/19 01:37 AST 47 U/L (17-59) 12/10/19 01:37 ALT 32 U/L (<50) 12/10/19 01:37 Alkaline Phosphatase 96 U/L (38-126) 12/10/19 01:37 NT-Pro-B Natriuret Pep 4440 pg/mL (<125) H 12/10/19 01:37 Total Protein 7.2 g/dL (6.3-8.2) 12/10/19 01:37 Albumin 4.2 g/dL (3.5-5.0) 12/10/19 01:37 Urine Color YELLOW 12/10/19 05:12 Urine Appearance CLEAR 12/10/19 05:12 Urine pH 5.0 (5.0-9.0) 12/10/19 05:12 Ur Specific [place] 1.021 12/10/19 05:12 Urine Protein NEGATIVE mg/dL (NEGATIVE) 12/10/19 05:12 Urine Glucose (UA) NEGATIVE mg/dL (NEGATIVE) 12/10/19 05:12 Urine Ketones NEGATIVE mg/dL (NEGATIVE) 12/10/19 05:12 Urine Blood NEGATIVE (NEGATIVE) 12/10/19 05:12 Urine Nitrite NEGATIVE (NEGATIVE) 12/10/19 05:12 Urine Bilirubin NEGATIVE (NEGATIVE) 12/10/19 05:12 Urine Urobilinogen 2.0 mg/dL (<2.0) H 12/10/19 05:12 Ur Leukocyte Esterase NEGATIVE (NEGATIVE) 12/10/19 05:12 Urine WBC (Auto) 2 /HPF 12/10/19 05:12 U Hyaline Cast (Auto) 1 /LPF 12/10/19 05:12 Urine Mucus (Auto) RARE /LPF 12/10/19 05:12 Urine Ascorbic Acid NEGATIVE (NEGATIVE) 12/10/19 05:12 12/10/19 01:37 NT-Pro-B Natriuret Pep 4440 H Stroke Is this a Stroke Patient?: No Acute Heart Failure - Is this a Heart Failure Patient?: No
== END 2019-12-13 12:31 | disposition home or self-care (01) ==
LOC: ER 01:00 → EH 06:05 → 4N 09:40
PROVIDERS: ADMIT Emergency Medicine; ATTEND Physician Assistant
DX: J44.1 Chronic obstructive pulmonary disease with (acute) exacerbation (principal); J96.21 Acute and chronic respiratory failure with hypoxia; I25.10 Atherosclerotic heart disease of native coronary artery without angina pectoris; E78.00 Pure hypercholesterolemia, unspecified; I25.2 Old myocardial infarction; Z99.81 Dependence on supplemental oxygen; Z87.891 Personal history of nicotine dependence; Z82.49 Family history of ischemic heart disease and other diseases of the circulatory system
CPT/HCPCS: 93005; 94640 ×6; 99285; 96365; 96366; 36415 ×2; 83735; 85025; 85027; 80048; 80053; 81001; 82803; 83880; 71045; 93010; 94660 ×4; A9270 ×23; J1644 ×4; J2920 ×4; J3475; J3490 ×8; J7040; J7614; J7620

== ENCOUNTER → 2020-04-27 | Outpatient (CLI) | payer MEDICARE, OTHER ==
--- NOTE | 2020-04-27 10:58 | RADIOLOGY REPORT (SQ) ---
EXAM DESCRIPTION: CT LUNG CANCER SCREENING IMAGES COMPLETED DATE/TIME: 04/27/2020 9:48 am REASON FOR STUDY: Z87.891 PERSONAL HISTORY OF NICOTINE DEPENDENCE Z87.891 PERSONAL HISTORY OF NICOT INE DEPENDENCE Has the patient had a Chest CT scan within the past year? N Was the patient offered tobacco cessation counseling? N Was the patient engaged in shared decision making for this test? Y Does the patient have signs or symptoms of Lung Cancer? N Is the patient a smoker? Y How many pack years? 60YR How many years since quitting smoking? NA Patients age: 75 COMPARISON: CT chest dated 04/01/2019. TECHNIQUE: Low Dose CT scan performed of the chest without intravenous contrast for purposes of scre ening for lung cancer. Images reviewed with lung, soft tissue and bone windows. Reconstructed coron al and sagittal MPR images reviewed. All images stored on PACS. All CT scanners at this facility use dose modulation, iterative reconstruction, and/or weight based d osing when appropriate to reduce radiation dose to as low as reasonably achievable (ALARA). [facility]: Dose Right [facility]: CareDose [facility]: Dose Right [facility]: Teradose 4D [facility]: [id number] RADIATION DOSE: CT Rad equipment meets quality standard of care and radiation dose reduction techniq ues were employed. CTDIvol: 2.1 mGy. DLP: 86 mGy-cm. mGy. . LIMITATIONS: None FINDINGS: LUNGS AND PLEURA: No masses or nodules. No pleural effusions or calcifications. No pne umothorax. Diffuse emphysematous changes. Chronic scarring. HILAR AND MEDIASTINAL STRUCTURES: No identified masses. No abnormal nodes. HEART AND VASCULAR STRUCTURES: No aortic aneurysm. No pericardial effusion. No cardiac devices. CORONARY ARTERY CALCIFICATIONS: Marked calcifications. UPPER ABDOMEN, THYROID, BONES, OTHER SOFT TISSUES: No significant findings. IMPRESSION: NO SIGNIFICANT FINDING IN THE LUNGS ON NON-CONTRASTED CHEST CT. CHRONIC EMPHYSEMATOUS C HANGES WITH CHRONIC SCARRING. NO OTHER CLINICALLY SIGNIFICANT/POTENTIALLY CLINICALLY SIGNIFICANT FINDINGS LUNGRADS: LUNGRADS: 1 NEGATIVE. NO NODULES, OR DEFINITELY BENIGN NODULES MODIFIER: NONE RECOMMENDATION: Continue annual screening with LDCT in 12 months. COMMENT: CRITERIA: No lung nodules. Nodules with specific calcifications: Complete, central, popcorn, concentric rings and fat containin g nodules. TECHNICAL DOCUMENTATION: JOB ID: [id number] Quality ID # [id number]: Final reports with documentation of one or more dose reduction techniques (e.g., Au tomated exposure control, adjustment of the mA and/or kV according to patient size, use of iterative reconstruction technique) 2010 [facility] Radiology Reading location - IP/workstation name: [facility]-
== END ==
LOC: RAD 09:03
PROVIDERS: ATTEND Registered Nurse
DX: Z12.2 Encounter for screening for malignant neoplasm of respiratory organs (principal); Z87.891 Personal history of nicotine dependence; I25.10 Atherosclerotic heart disease of native coronary artery without angina pectoris
CPT/HCPCS: G0297